=== PATIENT | female | born 1935 | race Caucasian/White ===

== ENCOUNTER 2016-07-30 11:03 | Outpatient (CLI) | payer MEDICARE, OTHER ==
[2016-07-30 13:20] LABS: Anion Gap 15 mmol/L (10-20); BUN (Urea Nitrogen) 29 mg/dL (9.8-20.1); Calc. Creatinine Clearance 0 mL/min (70-130); Calcium 9.3 mg/dL (7.8-10.44); Carbon Dioxide 35 mmol/L (23-31); Chloride 96 mmol/L (98-107); Estimated GFR-MDRD 31
[2016-07-30 13:47] LABS: Prothrombin Time 27.4 SEC (12.0-14.7)
== END 2016-07-30 11:04 ==
LOC: NAVSJIPCSP 11:03
PROVIDERS: ATTEND Internal Medicine
DX: I50.9 Heart failure, unspecified (principal); I48.91 Unspecified atrial fibrillation; C50.919 Malignant neoplasm of unspecified site of unspecified female breast
CPT/HCPCS: 36415; 80048; 83880; 85610

== ENCOUNTER 2016-09-11 10:05 | Outpatient (CLI) | payer MEDICARE, OTHER ==
[2016-09-11 12:42] LABS: Anion Gap 16 mmol/L (10-20); BUN (Urea Nitrogen) 40 mg/dL (9.8-20.1); Calc. Creatinine Clearance 0 mL/min (70-130); Calcium 9.4 mg/dL (7.8-10.44); Carbon Dioxide 34 mmol/L (23-31); Chloride 93 mmol/L (98-107); Estimated GFR-MDRD 27
[2016-09-11 14:27] LABS: Prothrombin Time 24.3 SEC (12.0-14.7)
== END 2016-09-11 10:06 | disposition home or self-care (01) ==
LOC: NAVSJIPCSP 10:05
PROVIDERS: ATTEND Internal Medicine
DX: I48.2 Chronic atrial fibrillation (principal); I10 Essential (primary) hypertension; I50.9 Heart failure, unspecified
CPT/HCPCS: 36415; 80048; 85610

== ENCOUNTER 2016-10-16 14:33 | Outpatient (CLI) | payer MEDICARE, OTHER ==
[2016-10-16 14:49] LABS: INR-International Normal Ratio 1.5; Prothrombin Time 18.3 SEC (12.0-14.7)
[2016-10-16 14:57] LABS: Anion Gap 19 mmol/L (10-20); BUN (Urea Nitrogen) 51 mg/dL (9.8-20.1); Calc. Creatinine Clearance 0 mL/min (70-130); Calcium 9.4 mg/dL (7.8-10.44); Carbon Dioxide 32 mmol/L (23-31); Chloride 93 mmol/L (98-107); Estimated GFR-MDRD 22; Glucose 68 mg/dL (83-110); Sodium 140 mmol/L (136-145)
== END 2016-10-16 14:34 | disposition home or self-care (01) ==
LOC: NAVSJIPCSP 14:33
PROVIDERS: ATTEND Internal Medicine
DX: I48.91 Unspecified atrial fibrillation (principal); I10 Essential (primary) hypertension; N30.90 Cystitis, unspecified without hematuria; Z79.899 Other long term (current) drug therapy
CPT/HCPCS: 36415; 80048; 85610

== ENCOUNTER 2016-11-28 10:59 | Outpatient (CLI) | payer MEDICARE, OTHER ==
[2016-11-28 11:27] LABS: Bilirubin Negative (Negative); Blood, Urine Trace (Negative); Clarity Clear (Clear); Glucose, Urine (Dipstick) Negative (Negative); Leukocyte Moderate (Negative); Nitrite Negative (Negative); Protein, Urine (Dipstick) Trace mg/dL (Neg-Trace); Specific Gravity, Urine 1.015 (1.005-1.030); Urobilinogen 0.2 mg/dL (0.2-1.0); pH, Urine 7.5 (5.0-9.0)
[2016-11-28 11:35] LABS: Other Microscopic Description QNS FOR MICROSCOPIC
== END 2016-11-28 11:00 | disposition home or self-care (01) ==
LOC: NAVSJIPCSP 10:59
PROVIDERS: ATTEND Family Medicine
DX: N30.90 Cystitis, unspecified without hematuria (principal)
CPT/HCPCS: 81003; 81015; 87086

== ENCOUNTER 2016-12-03 12:41 | Outpatient (CLI) | payer MEDICARE, OTHER ==
[2016-12-03 13:15] LABS: #Basophils 0.1 thou/uL (0.0-0.2); #Eosinphils 0.4 thou/uL (0.0-0.7); #Lymphocytes 1.1 thou/uL (1.20-3.40); #Monocytes 1.1 thou/uL (0.11-0.59); #Neutrophils 5.6 thou/uL (1.40-6.50); %Basophils 1.4 % (0.0-1.0); %Eosinophils 5.2 % (0.0-10.0); %Lymphocytes 12.8 % (21.0-51.0); %Monocytes 13.1 % (0.0-10.0); %Neutrophils 67.6 % (42.0-75.0); Mean Corpuscular HGB CONC 34.3 g/dL (32.0-36.0); Mean Corpuscular Hemoglobin 32.6 pg (27.0-31.0); Mean Corpuscular Volume 94.9 fl (81.0-99.0); Mean Platelet Volume 9.4 fL (7.4-10.4); Platelet Count 203 thou/uL (130-400); RBC Distribution Width 11.7 % (11.5-14.5); Red Blood Cell (RBC) Count 4.31 mill/uL (4.20-5.40); White Blood Cell (WBC) Count 8.2 thou/uL (4.8-10.8)
[2016-12-03 13:23] LABS: INR-International Normal Ratio 2.5; Prothrombin Time 28.4 SEC (12.0-14.7)
[2016-12-03 13:36] LABS: Chloride 88 mmol/L (98-107); Sodium 138 mmol/L (136-145)
[2016-12-03 13:48] LABS: BUN (Urea Nitrogen) 72 mg/dL (9.8-20.1); Calc. Creatinine Clearance 0 mL/min (70-130); Calcium 9.4 mg/dL (7.8-10.44); Carbon Dioxide 31 mmol/L (23-31); Estimated GFR-MDRD 19; Glucose 85 mg/dL (83-110)
--- NOTE | 2016-12-03 13:52 | RAD ---
THREE VIEWS OF THE RIGHT HAND: Indication: Osteoarthritis. Comparison: None. FINDINGS: There is advanced STT and first MC osteoarthrosis. There is scattered IP osteoarthritis. No acute fr acture or subluxation is evident. There is diffuse osteopenia. There is some chondrocalcinosis seen within the TFC and hyaline cartilage of the radiocarpal joint. IMPRESSION: 1. Scattered osteoarthrosis of the right hand. 2. Chondrocalcinosis. POS: [facility]
--- NOTE | 2016-12-03 13:56 | RAD ---
RIGHT FOOT THREE VIEWS: History: Arthritis. Right foot pain. FINDINGS: Lisfranc joint alignment is anatomic. Pes planus is apparent on the lateral view. Prominent osteophy tosis and joint space narrowing was present throughout the hindfoot, most severe at the talonavicula r joint. Osseous structures are demineralized. Soft tissue swelling overlies the hindfoot. IMPRESSION: 1. Severe osteoarthritic changes of the hindfoot. Soft tissue swelling. 2. Osteoporosis. 3. Severe pes planus. POS: [facility]
[2016-12-03 14:05] LABS: Anion Gap 22 mmol/L (10-20)
== END 2016-12-03 12:42 | disposition home or self-care (01) ==
LOC: NAV LAB 12:41
PROVIDERS: ATTEND Internal Medicine
DX: I48.91 Unspecified atrial fibrillation (principal); M17.0 Bilateral primary osteoarthritis of knee; I10 Essential (primary) hypertension; N30.90 Cystitis, unspecified without hematuria; Z79.01 Long term (current) use of anticoagulants; Z79.899 Other long term (current) drug therapy
CPT/HCPCS: 36415; 80048; 85025; 85610

== ENCOUNTER 2016-12-12 16:12 | Emergency (ER) | payer MEDICARE, OTHER | END 2016-12-12 17:17 | disposition home or self-care (01) | LOC: NAV ERS 16:12 | DX: M47.892 Other spondylosis, cervical region (principal); E78.5 Hyperlipidemia, unspecified; I11.0 Hypertensive heart disease with heart failure; I50.9 Heart failure, unspecified; E21.3 Hyperparathyroidism, unspecified; Z79.01 Long term (current) use of anticoagulants; Z79.899 Other long term (current) drug therapy | CPT/HCPCS: 99283 ==

== ENCOUNTER 2016-12-25 11:38 | Outpatient (CLI) | payer MEDICARE, OTHER ==
[2016-12-25 12:34] LABS: #Basophils 0.1 thou/uL (0.0-0.2); #Eosinphils 0.1 thou/uL (0.0-0.7); #Lymphocytes 1.2 thou/uL (1.20-3.40); #Monocytes 1.2 thou/uL (0.11-0.59); #Neutrophils 10.7 thou/uL (1.40-6.50); %Basophils 0.7 % (0.0-1.0); %Eosinophils 0.9 % (0.0-10.0); %Lymphocytes 8.9 % (21.0-51.0); %Monocytes 8.7 % (0.0-10.0); %Neutrophils 80.7 % (42.0-75.0); Hemoglobin 12.8 g/dL (12.0-16.0); Mean Corpuscular HGB CONC 33.3 g/dL (32.0-36.0); Mean Corpuscular Hemoglobin 32.4 pg (27.0-31.0); Mean Corpuscular Volume 97.1 fl (81.0-99.0); Mean Platelet Volume 7.9 fL (7.4-10.4); Platelet Count 196 thou/uL (130-400); RBC Distribution Width 12.1 % (11.5-14.5); Red Blood Cell (RBC) Count 3.97 mill/uL (4.20-5.40); White Blood Cell (WBC) Count 13.2 thou/uL (4.8-10.8)
[2016-12-25 12:39] LABS: INR-International Normal Ratio 1.2; Prothrombin Time 15.3 SEC (12.0-14.7)
[2016-12-25 12:50] LABS: Anion Gap 16 mmol/L (10-20); BUN (Urea Nitrogen) 33 mg/dL (9.8-20.1); Calc. Creatinine Clearance 0 mL/min (70-130); Calcium 7.9 mg/dL (7.8-10.44); Carbon Dioxide 25 mmol/L (23-31); Chloride 103 mmol/L (98-107); Estimated GFR-MDRD 46; Glucose 81 mg/dL (83-110); Potassium 3.6 mmol/L (3.5-5.1); Sodium 140 mmol/L (136-145)
== END 2016-12-25 11:39 | disposition home or self-care (01) ==
LOC: NAVSJIPCSP 11:38
PROVIDERS: ATTEND Internal Medicine
DX: Z51.81 Encounter for therapeutic drug level monitoring (principal); Z79.899 Other long term (current) drug therapy
CPT/HCPCS: 36415; 80048; 85025; 85610

== ENCOUNTER 2017-01-07 09:52 | Outpatient (CLI) | payer MEDICARE, OTHER ==
[2017-01-07 12:58] LABS: Anion Gap 17 mmol/L (10-20); BUN (Urea Nitrogen) 20 mg/dL (9.8-20.1); Calc. Creatinine Clearance 0 mL/min (70-130); Calcium 8.2 mg/dL (7.8-10.44); Carbon Dioxide 27 mmol/L (23-31); Chloride 101 mmol/L (98-107); Estimated GFR-MDRD 38; Glucose 89 mg/dL (83-110); Potassium 3.5 mmol/L (3.5-5.1); Sodium 141 mmol/L (136-145)
[2017-01-07 13:35] LABS: INR-International Normal Ratio 1.8; Prothrombin Time 21.3 SEC (12.0-14.7)
== END 2017-01-07 09:53 | disposition home or self-care (01) ==
LOC: NAVSJIPCSP 09:52
PROVIDERS: ATTEND Internal Medicine
DX: I48.91 Unspecified atrial fibrillation (principal); I10 Essential (primary) hypertension; N30.90 Cystitis, unspecified without hematuria
CPT/HCPCS: 36415; 80048; 85610

== ENCOUNTER 2017-01-15 15:16 | Inpatient (IN) | payer MEDICARE, OTHER ==
[2017-01-15 15:50] VITALS: BMI 29.1
[2017-01-15] MEDS ORDERED: HYDROCODONE PO PRN ×2 (17:33)
[2017-01-15] MEDS ORDERED: PROVENTIL INHALER 6.7 G (200 INHALATIONS) INH PRN (17:33)
[2017-01-15] MEDS ORDERED: Diphenoxylate HCl/Atropine Tablet PO PRN ×2 (17:33→18:27)
[2017-01-15] MEDS ORDERED: IBUPROFEN PO PRN ×2 (17:33)
[2017-01-15] MEDS ORDERED: Warfarin Sodium 5 MG TAB PO SCH (18:30)
[2017-01-15] MEDS: metroNIDAZOLE 500 MG TAB PO SCH (21:11)
[2017-01-15] MEDS: Famotidine 20 MG TAB PO SCH (21:11)
[2017-01-16] MEDS: Levothyroxine Sodium 100 MCG TAB PO SCH (05:35)
[2017-01-16 05:56] LABS: INR-International Normal Ratio 2.5; Prothrombin Time 28.2 SEC (12.0-14.7)
[2017-01-16 06:08] LABS: ALT (SGPT) 11 U/L (8-55); AST (SGOT) 24 U/L (5-34); Albumin 2.4 g/dL (3.4-4.8); Alkaline Phosphatase 56 U/L (40-150); Anion Gap 12 mmol/L (10-20); BUN (Urea Nitrogen) 35 mg/dL (9.8-20.1); Bilirubin, Total 0.4 mg/dL (0.2-1.2); Calc. Creatinine Clearance 45 mL/min (70-130); Calcium 8.1 mg/dL (7.8-10.44); Carbon Dioxide 36 mmol/L (23-31); Chloride 95 mmol/L (98-107); Estimated GFR-MDRD 36; Globulin 2.8 g/dL (2.4-3.5); Glucose 74 mg/dL (83-110); Potassium 3.1 mmol/L (3.5-5.1); Protein, Total 5.2 g/dL (6.0-8.3); Sodium 140 mmol/L (136-145)
[2017-01-16 06:44] LABS: Hemoglobin 10.4 g/dL (12.0-16.0); Mean Corpuscular HGB CONC 32.8 g/dL (32.0-36.0); Mean Corpuscular Hemoglobin 31.2 pg (27.0-31.0); Mean Platelet Volume 7.4 fL (7.4-10.4); Platelet Count 308 thou/uL (130-400); RBC Distribution Width 12.7 % (11.5-14.5); Red Blood Cell (RBC) Count 3.34 mill/uL (4.20-5.40); White Blood Cell (WBC) Count 7.9 thou/uL (4.8-10.8)
[2017-01-16 06:45] LABS: Anisocytosis SLIGHT = 6-15 cells (100X) (0-5/hpf); Band 2 % (5-11); Hypochromia SLIGHT = 6-15 cells (100X) (0-5/hpf); Lymphocytes 23 % (21-51); MDiff Complete? YES; Monocytes 12 % (0-10); Neutrophil 63 % (42-75); PLT Morphology Comment Appears Adequate
[2017-01-16] MEDS: predniSONE 10 MG TAB PO SCH (08:35)
[2017-01-16] MEDS: Folic Acid 1 MG TAB PO SCH (09:58)
[2017-01-16] MEDS: Loratadine 10 MG TAB PO SCH (09:58)
[2017-01-16] MEDS: metroNIDAZOLE 500 MG TAB PO SCH ×3 (09:58→21:19)
[2017-01-16] MEDS: Allopurinol 100 MG TAB PO SCH (09:59)
[2017-01-16] MEDS: Furosemide 40 MG TAB PO SCH (09:59)
[2017-01-16] MEDS: Potassium Bicarbonate/Cit Ac 25 MEQ TAB PO SCH (09:59)
[2017-01-16] MEDS: Famotidine 20 MG TAB PO SCH ×2 (09:59→21:19)
[2017-01-16] MEDS: Warfarin Sodium 5 MG TAB PO SCH (17:55)
[2017-01-17 05:40] LABS: INR-International Normal Ratio 2.9; Prothrombin Time 31.4 SEC (12.0-14.7)
[2017-01-17] MEDS: Levothyroxine Sodium 100 MCG TAB PO SCH (06:00)
[2017-01-17] MEDS: Loratadine 10 MG TAB PO SCH (08:40)
[2017-01-17] MEDS: predniSONE 10 MG TAB PO SCH (08:40)
[2017-01-17] MEDS: metroNIDAZOLE 500 MG TAB PO SCH (08:40)
[2017-01-17] MEDS: Famotidine 20 MG TAB PO SCH ×2 (08:40→20:02)
[2017-01-17] MEDS: Furosemide 40 MG TAB PO SCH (08:40)
[2017-01-17] MEDS: Folic Acid 1 MG TAB PO SCH (08:41)
[2017-01-17] MEDS: Allopurinol 100 MG TAB PO SCH (08:41)
[2017-01-17] MEDS: Potassium Bicarbonate/Cit Ac 25 MEQ TAB PO SCH ×2 (08:41→16:49)
[2017-01-17] MEDS ORDERED: Potassium Chloride 20 MEQ TAB PO SCH (17:00)
[2017-01-18 05:47] LABS: INR-International Normal Ratio 2.8; Prothrombin Time 30.5 SEC (12.0-14.7)
[2017-01-18] MEDS: Levothyroxine Sodium 100 MCG TAB PO SCH (05:50)
[2017-01-18 05:53] LABS: Anion Gap 14 mmol/L (10-20); BUN (Urea Nitrogen) 27 mg/dL (9.8-20.1); Calc. Creatinine Clearance 44 mL/min (70-130); Calcium 8.5 mg/dL (7.8-10.44); Carbon Dioxide 33 mmol/L (23-31); Chloride 97 mmol/L (98-107); Estimated GFR-MDRD 36; Glucose 76 mg/dL (83-110); Potassium 3.4 mmol/L (3.5-5.1); Sodium 141 mmol/L (136-145)
[2017-01-18 05:59] LABS: Hemoglobin 11.9 g/dL (12.0-16.0); Platelet Count 313 thou/uL (130-400)
[2017-01-18] MEDS: Loratadine 10 MG TAB PO SCH (10:10)
[2017-01-18] MEDS: Famotidine 20 MG TAB PO SCH ×2 (10:10→21:51)
[2017-01-18] MEDS: Folic Acid 1 MG TAB PO SCH (10:10)
[2017-01-18] MEDS: predniSONE 10 MG TAB PO SCH (10:11)
[2017-01-18] MEDS: Allopurinol 100 MG TAB PO SCH (10:11)
[2017-01-18] MEDS: Potassium Bicarbonate/Cit Ac 25 MEQ TAB PO SCH ×2 (10:11→16:35)
[2017-01-18] MEDS ORDERED: Polyethylene Glycol 3350 17 GM Packet PO SCH (21:00)
[2017-01-19 05:47] LABS: INR-International Normal Ratio 2.9; Prothrombin Time 31.5 SEC (12.0-14.7)
[2017-01-19] MEDS: Levothyroxine Sodium 100 MCG TAB PO SCH (05:56)
[2017-01-19] MEDS: Folic Acid 1 MG TAB PO SCH (09:16)
[2017-01-19] MEDS: Loratadine 10 MG TAB PO SCH (09:16)
[2017-01-19] MEDS: Famotidine 20 MG TAB PO SCH ×2 (09:16→20:50)
[2017-01-19] MEDS: Potassium Bicarbonate/Cit Ac 25 MEQ TAB PO SCH ×2 (09:16→17:01)
[2017-01-19] MEDS: predniSONE 10 MG TAB PO SCH (09:16)
[2017-01-19] MEDS: Allopurinol 100 MG TAB PO SCH (09:16)
[2017-01-19] MEDS: Warfarin Sodium 5 MG TAB PO SCH (17:02)
[2017-01-20 05:30] LABS: Hemoglobin 10.9 g/dL (12.0-16.0); Platelet Count 255 thou/uL (130-400)
[2017-01-20 05:34] LABS: INR-International Normal Ratio 2.6; Prothrombin Time 28.7 SEC (12.0-14.7)
[2017-01-20] MEDS: Levothyroxine Sodium 100 MCG TAB PO SCH (06:24)
[2017-01-20] MEDS: Potassium Bicarbonate/Cit Ac 25 MEQ TAB PO SCH ×2 (08:25→16:56)
[2017-01-20] MEDS: predniSONE 10 MG TAB PO SCH (08:26)
[2017-01-20] MEDS: Allopurinol 100 MG TAB PO SCH (08:26)
[2017-01-20] MEDS: Loratadine 10 MG TAB PO SCH (08:26)
[2017-01-20] MEDS: Famotidine 20 MG TAB PO SCH ×2 (08:26→21:11)
[2017-01-20] MEDS: Folic Acid 1 MG TAB PO SCH (08:26)
[2017-01-20] MEDS: Warfarin Sodium 5 MG TAB PO SCH (16:55)
[2017-01-21] MEDS: Levothyroxine Sodium 100 MCG TAB PO SCH (05:27)
[2017-01-21 05:40] LABS: INR-International Normal Ratio 2.7; Prothrombin Time 30.2 SEC (12.0-14.7)
[2017-01-21 08:33] LABS: Anion Gap 14 mmol/L (10-20); BUN (Urea Nitrogen) 18 mg/dL (9.8-20.1); Calc. Creatinine Clearance 51 mL/min (70-130); Calcium 8.5 mg/dL (7.8-10.44); Carbon Dioxide 27 mmol/L (23-31); Chloride 103 mmol/L (98-107); Estimated GFR-MDRD 41; Glucose 71 mg/dL (83-110); Potassium 4.1 mmol/L (3.5-5.1); Sodium 140 mmol/L (136-145)
[2017-01-21] MEDS: predniSONE 10 MG TAB PO SCH (08:55)
[2017-01-21] MEDS: Loratadine 10 MG TAB PO SCH (08:55)
[2017-01-21] MEDS: Allopurinol 100 MG TAB PO SCH (08:55)
[2017-01-21] MEDS: Potassium Bicarbonate/Cit Ac 25 MEQ TAB PO SCH (08:55)
[2017-01-21] MEDS: Folic Acid 1 MG TAB PO SCH (08:55)
[2017-01-21] MEDS: Famotidine 20 MG TAB PO SCH (08:55)
[2017-01-21 09:51] VITALS: BP 158/72; TEMP 97.8
== END 2017-01-21 15:05 | disposition home health service (06) | DRG 947 ==
LOC: NAV ACUTE 15:16
PROVIDERS: ADMIT Internal Medicine; ATTEND Internal Medicine
DX: R53.1 Weakness (principal); A41.89 Other specified sepsis; I50.32 Chronic diastolic (congestive) heart failure; N39.0 Urinary tract infection, site not specified; Z85.3 Personal history of malignant neoplasm of breast; Z79.01 Long term (current) use of anticoagulants; I48.2 Chronic atrial fibrillation; E87.6 Hypokalemia; I35.0 Nonrheumatic aortic (valve) stenosis; E03.9 Hypothyroidism, unspecified; N18.3 Chronic kidney disease, stage 3 (moderate); I27.2 Other secondary pulmonary hypertension
CPT/HCPCS: 80048; 80053; 85007; 85014; 85018; 85027; 85049; 85610; J7512

== ENCOUNTER 2017-01-22 23:23 | Emergency (ER) | payer MEDICARE, OTHER ==
[2017-01-22] MEDS ORDERED: Clindamycin 300 MG/2 ML VIAL ONE (23:57)
[2017-01-22] MEDS ORDERED: Ibuprofen 800 MG TAB ONE (23:57)
[2017-01-22] MEDS ORDERED: Sodium Chloride 0.9% 500 ML ONE (23:58)
[2017-01-23 00:13] LABS: #Basophils 0.2 thou/uL (0.0-0.2); #Eosinphils 0.5 thou/uL (0.0-0.7); #Lymphocytes 1.2 thou/uL (1.20-3.40); #Monocytes 0.9 thou/uL (0.11-0.59); #Neutrophils 12.5 thou/uL (1.40-6.50); %Basophils 1.1 % (0.0-1.0); %Eosinophils 3.1 % (0.0-10.0); %Lymphocytes 7.8 % (21.0-51.0); %Monocytes 6.1 % (0.0-10.0); %Neutrophils 81.9 % (42.0-75.0); Hemoglobin 13.4 g/dL (12.0-16.0); Mean Corpuscular HGB CONC 33.4 g/dL (32.0-36.0); Mean Corpuscular Hemoglobin 32.2 pg (27.0-31.0); Mean Corpuscular Volume 96.3 fl (81.0-99.0); Mean Platelet Volume 7.3 fL (7.4-10.4); Platelet Count 208 thou/uL (130-400); Red Blood Cell (RBC) Count 4.17 mill/uL (4.20-5.40); White Blood Cell (WBC) Count 15.3 thou/uL (4.8-10.8)
[2017-01-23] MEDS ORDERED: Ibuprofen 800 MG TAB ONE (00:17)
[2017-01-23] MEDS ORDERED: Ibuprofen 100 MG/5 ML UDCUP ONE (00:21)
[2017-01-23] MEDS ORDERED: Ibuprofen 200 MG TAB ONE (00:22)
[2017-01-23 00:24] LABS: INR-International Normal Ratio 2.9; PTT 48.3 SEC (22.9-36.1); Prothrombin Time 31.6 SEC (12.0-14.7)
[2017-01-23 00:32] LABS: ALT (SGPT) 12 U/L (8-55); AST (SGOT) 22 U/L (5-34); Albumin 3.3 g/dL (3.4-4.8); Alkaline Phosphatase 73 U/L (40-150); Anion Gap 16 mmol/L (10-20); BUN (Urea Nitrogen) 19 mg/dL (9.8-20.1); CK (CPK) 17 U/L (29-168); Calc. Creatinine Clearance 0 mL/min (70-130); Carbon Dioxide 26 mmol/L (23-31); Chloride 102 mmol/L (98-107); Estimated GFR-MDRD 38; Globulin 3.4 g/dL (2.4-3.5); Glucose 104 mg/dL (83-110); Potassium 4.8 mmol/L (3.5-5.1); Protein, Total 6.7 g/dL (6.0-8.3); Sodium 139 mmol/L (136-145)
[2017-01-23 00:33] LABS: CKMB 0.8 ng/mL (0-6.6); Troponin I 0.032 ng/mL (< 0.028)
[2017-01-23] MEDS ORDERED: Clindamycin/D5W 600 MG in Premix Bag 1 BAG IVPB SCH (01:00)
--- NOTE | 2017-01-23 08:07 | RAD ---
SINGLE VIEW OF THE CHEST: Comparison: 01-10-17 History: Weakness. FINDINGS: Single view of the chest shows a cardiomediastinal silhouette that is upper limits of normal in size . A calcified granuloma is seen in the right lung. There is no evidence of consolidation or pleural effusion. IMPRESSION: No evidence of acute cardiopulmonary disease. POS: [facility]
== END 2017-01-23 02:41 | disposition short-term general hospital (02) ==
LOC: NAV ERS 23:23
DX: L03.114 Cellulitis of left upper limb (principal); I48.91 Unspecified atrial fibrillation; E78.5 Hyperlipidemia, unspecified; I11.0 Hypertensive heart disease with heart failure; I50.9 Heart failure, unspecified; I27.2 Other secondary pulmonary hypertension; Z79.899 Other long term (current) drug therapy; Z79.01 Long term (current) use of anticoagulants
CPT/HCPCS: 36415; 71010; 80053; 82550; 82553; 83605; 83880; 84484; 85025; 85610; 85730; 87040; 93005; 96361; 96365; 96375; J3490; J7050

== ENCOUNTER 2017-01-27 13:08 | Outpatient (CLI) | payer MEDICARE, OTHER ==
[2017-01-27 13:46] LABS: Anion Gap 15 mmol/L (10-20); BUN (Urea Nitrogen) 19 mg/dL (9.8-20.1); Calc. Creatinine Clearance 0 mL/min (70-130); Calcium 8.4 mg/dL (7.8-10.44); Carbon Dioxide 23 mmol/L (23-31); Chloride 106 mmol/L (98-107); Estimated GFR-MDRD 53; Glucose 80 mg/dL (83-110); Potassium 4.2 mmol/L (3.5-5.1); Sodium 140 mmol/L (136-145)
[2017-01-27 14:07] LABS: #Basophils 0.1 thou/uL (0.0-0.2); #Eosinphils 0.2 thou/uL (0.0-0.7); #Lymphocytes 0.5 thou/uL (1.20-3.40); #Monocytes 0.6 thou/uL (0.11-0.59); #Neutrophils 11.1 thou/uL (1.40-6.50); %Basophils 0.7 % (0.0-1.0); %Eosinophils 1.4 % (0.0-10.0); %Monocytes 4.9 % (0.0-10.0); %Neutrophils 89.1 % (42.0-75.0); Hemoglobin 11.9 g/dL (12.0-16.0); Mean Corpuscular HGB CONC 32.8 g/dL (32.0-36.0); Mean Corpuscular Hemoglobin 32.1 pg (27.0-31.0); Mean Corpuscular Volume 97.9 fl (81.0-99.0); Mean Platelet Volume 7.3 fL (7.4-10.4); Platelet Count 220 thou/uL (130-400); RBC Distribution Width 14.8 % (11.5-14.5); Red Blood Cell (RBC) Count 3.71 mill/uL (4.20-5.40); White Blood Cell (WBC) Count 12.4 thou/uL (4.8-10.8)
[2017-01-27 17:24] LABS: INR-International Normal Ratio 1.4; Prothrombin Time 17.7 SEC (12.0-14.7)
== END 2017-01-27 13:09 | disposition home or self-care (01) ==
LOC: NAVSJIPCSP 13:08
PROVIDERS: ATTEND Internal Medicine
DX: C50.919 Malignant neoplasm of unspecified site of unspecified female breast (principal); N30.90 Cystitis, unspecified without hematuria; I48.91 Unspecified atrial fibrillation; I10 Essential (primary) hypertension
CPT/HCPCS: 36415; 80048; 85025; 85610

== ENCOUNTER 2017-02-02 10:37 | Outpatient (CLI) | payer MEDICARE, OTHER ==
[2017-02-02 14:15] LABS: #Basophils 0.1 thou/uL (0.0-0.2); #Eosinphils 0.9 thou/uL (0.0-0.7); #Lymphocytes 0.9 thou/uL (1.20-3.40); #Monocytes 0.5 thou/uL (0.11-0.59); #Neutrophils 5.3 thou/uL (1.40-6.50); %Basophils 0.9 % (0.0-1.0); %Eosinophils 11.6 % (0.0-10.0); %Lymphocytes 11.7 % (21.0-51.0); %Monocytes 5.9 % (0.0-10.0); %Neutrophils 69.9 % (42.0-75.0); Hemoglobin 11.6 g/dL (12.0-16.0); Mean Corpuscular HGB CONC 31.8 g/dL (32.0-36.0); Mean Corpuscular Hemoglobin 31.7 pg (27.0-31.0); Mean Corpuscular Volume 99.9 fl (81.0-99.0); Mean Platelet Volume 7.2 fL (7.4-10.4); Platelet Count 159 thou/uL (130-400); RBC Distribution Width 15.2 % (11.5-14.5); Red Blood Cell (RBC) Count 3.64 mill/uL (4.20-5.40); White Blood Cell (WBC) Count 7.6 thou/uL (4.8-10.8)
[2017-02-02 14:44] LABS: Anion Gap 14 mmol/L (10-20); BUN (Urea Nitrogen) 20 mg/dL (9.8-20.1); CRP (Inflammatory) 3.72 mg/dL (= or < 0.5); Calc. Creatinine Clearance 0 mL/min (70-130); Calcium 8.5 mg/dL (7.8-10.44); Carbon Dioxide 27 mmol/L (23-31); Chloride 103 mmol/L (98-107); Estimated GFR-MDRD 58; Glucose 91 mg/dL (83-110); Potassium 3.8 mmol/L (3.5-5.1); Sodium 140 mmol/L (136-145)
== END 2017-02-02 10:38 ==
LOC: NAVSJIPCSP 10:37
PROVIDERS: ATTEND Internal Medicine
DX: L03.119 Cellulitis of unspecified part of limb (principal); M10.9 Gout, unspecified
CPT/HCPCS: 36415; 80048; 85025; 85652; 86140

== ENCOUNTER 2017-02-02 11:59 | Outpatient (CLI) | payer MEDICARE, OTHER ==
--- NOTE | 2017-02-02 15:13 | ULT ---
LEFT UPPER EXTREMITY VENOUS DOPPLER EVALUATION WITH SPECTRAL ANALYSIS AND COLOR FLOW EVALUATION: Date: 02-02-17 History: Left upper extremity swelling x one day. Left breast neoplasm. FINDINGS: Grayscale, color flow, doppler evaluation, and spectral analysis of the left upper extremity venous structures is performed with 2D imaging. There is normal flow seen within the left internal jugular and subclavian veins with normal lumen compressibility and flow seen within the left axillary, brach ial, basilic and cephalic veins. Flow is demonstrated within the left upper extremity radial and uln ar veins. IMPRESSION: 1. No evidence of DVT involving the visualized deep venous structures, left upper extremity. POS: [facility]
== END 2017-02-02 12:00 | disposition home or self-care (01) ==
LOC: NAV ULT 11:59
PROVIDERS: ATTEND Internal Medicine
DX: C50.919 Malignant neoplasm of unspecified site of unspecified female breast (principal); I48.91 Unspecified atrial fibrillation; N30.90 Cystitis, unspecified without hematuria; I10 Essential (primary) hypertension
CPT/HCPCS: 36415; 80048; 85025; 85652; 86140

== ENCOUNTER 2017-02-10 14:10 | Outpatient (CLI) | payer MEDICARE, OTHER ==
[2017-02-10 19:59] LABS: INR-International Normal Ratio 1.2; Prothrombin Time 15.2 SEC (12.0-14.7)
[2017-02-10 20:58] LABS: Anion Gap 17 mmol/L (10-20); BUN (Urea Nitrogen) 18 mg/dL (9.8-20.1); Calc. Creatinine Clearance 0 mL/min (70-130); Calcium 8.7 mg/dL (7.8-10.44); Carbon Dioxide 25 mmol/L (23-31); Chloride 104 mmol/L (98-107); Estimated GFR-MDRD 54; Glucose 61 mg/dL (83-110); Potassium 4.1 mmol/L (3.5-5.1); Sodium 142 mmol/L (136-145)
== END 2017-02-10 14:11 | disposition home or self-care (01) ==
LOC: NAVSJIPCSP 14:10
PROVIDERS: ATTEND Internal Medicine
DX: I48.91 Unspecified atrial fibrillation (principal); I10 Essential (primary) hypertension; N30.90 Cystitis, unspecified without hematuria
CPT/HCPCS: 80048; 81003; 83880; 85610

== ENCOUNTER 2017-02-17 13:36 | Outpatient (CLI) | payer MEDICARE, OTHER ==
[2017-02-17 17:31] LABS: INR-International Normal Ratio 2.9; Prothrombin Time 31.5 SEC (12.0-14.7)
[2017-02-17 17:34] LABS: Hemoglobin 12.6 g/dL (12.0-16.0)
[2017-02-17 17:36] LABS: Anion Gap 15 mmol/L (10-20); BUN (Urea Nitrogen) 19 mg/dL (9.8-20.1); Calc. Creatinine Clearance 0 mL/min (70-130); Calcium 8.7 mg/dL (7.8-10.44); Carbon Dioxide 28 mmol/L (23-31); Chloride 103 mmol/L (98-107); Estimated GFR-MDRD 48; Potassium 3.7 mmol/L (3.5-5.1); Sodium 142 mmol/L (136-145)
[2017-02-17 18:13] LABS: Glucose 57 mg/dL (83-110)
[2017-02-17 19:20] LABS: Bilirubin Negative (Negative); Blood, Urine Negative (Negative); Clarity Clear (Clear); Glucose, Urine (Dipstick) Negative (Negative); Leukocyte Trace (Negative); Nitrite Negative (Negative); Protein, Urine (Dipstick) Negative (Neg-Trace); Specific Gravity, Urine 1.015 (1.005-1.030); Urobilinogen 0.2 mg/dL (0.2-1.0)
[2017-02-17 20:15] LABS: RBC/HPF 0-3 HPF (0-3)
[2017-02-17 20:16] LABS: Bacteria/HPF Rare-Few HPF (None Seen)
[2017-02-18 17:54] LABS: Creatinine, Urine 118.22 mg/dL (47-110)
== END 2017-02-17 13:37 | disposition home or self-care (01) ==
LOC: NAVSJIPCSP 13:36
PROVIDERS: ATTEND Internal Medicine
DX: I12.9 Hypertensive chronic kidney disease with stage 1 through stage 4 chronic kidney disease, or unspecified chronic kidney disease (principal); N18.3 Chronic kidney disease, stage 3 (moderate); D63.1 Anemia in chronic kidney disease; I48.91 Unspecified atrial fibrillation; R80.9 Proteinuria, unspecified
CPT/HCPCS: 36415; 80048; 81003; 81015; 82570; 83880; 84156; 85014; 85018; 85610

== ENCOUNTER 2017-03-16 09:48 | Outpatient (CLI) | payer MEDICARE, OTHER ==
[2017-03-16 10:26] LABS: INR-International Normal Ratio 5.2
== END 2017-03-16 09:49 | disposition home or self-care (01) ==
LOC: NAV LAB 09:48
PROVIDERS: ATTEND Internal Medicine
DX: Z51.81 Encounter for therapeutic drug level monitoring (principal); I48.91 Unspecified atrial fibrillation; Z79.01 Long term (current) use of anticoagulants
CPT/HCPCS: 36415; 85610

== ENCOUNTER 2017-03-18 13:58 | Outpatient (CLI) | payer MEDICARE, OTHER ==
[2017-03-18 14:49] LABS: INR-International Normal Ratio 2.8; Prothrombin Time 30.3 SEC (12.0-14.7)
== END 2017-03-18 13:59 | disposition home or self-care (01) ==
LOC: NAVSJIPCSP 13:58
PROVIDERS: ATTEND Internal Medicine
DX: Z51.81 Encounter for therapeutic drug level monitoring (principal); I48.91 Unspecified atrial fibrillation; I10 Essential (primary) hypertension; N30.90 Cystitis, unspecified without hematuria
CPT/HCPCS: 85610

== ENCOUNTER 2017-03-24 18:03 | Outpatient (CLI) | payer MEDICARE, OTHER ==
[2017-03-24 18:26] LABS: INR-International Normal Ratio 1.1; Prothrombin Time 14.6 SEC (12.0-14.7)
== END 2017-03-24 18:04 | disposition home or self-care (01) ==
LOC: NAVSJIPCSP 18:03
PROVIDERS: ATTEND Internal Medicine
DX: Z51.81 Encounter for therapeutic drug level monitoring (principal); I48.91 Unspecified atrial fibrillation; N30.90 Cystitis, unspecified without hematuria; I10 Essential (primary) hypertension; Z79.01 Long term (current) use of anticoagulants
CPT/HCPCS: 85610

== ENCOUNTER 2017-03-30 15:33 | Outpatient (CLI) | payer MEDICARE, OTHER ==
[2017-03-30 16:32] LABS: INR-International Normal Ratio 1.3; Prothrombin Time 15.9 SEC (12.0-14.7)
== END 2017-03-30 15:34 | disposition home or self-care (01) ==
LOC: NAV LABSP 15:33
PROVIDERS: ATTEND Internal Medicine
DX: Z51.81 Encounter for therapeutic drug level monitoring (principal); I48.91 Unspecified atrial fibrillation; N30.90 Cystitis, unspecified without hematuria; I10 Essential (primary) hypertension; Z79.01 Long term (current) use of anticoagulants
CPT/HCPCS: 36415; 85610

== ENCOUNTER 2017-04-13 10:41 | Outpatient (CLI) | payer MEDICARE, OTHER ==
[2017-04-13 12:29] LABS: INR-International Normal Ratio 1.9; Prothrombin Time 22.3 SEC (12.0-14.7)
[2017-04-13 12:47] LABS: Anion Gap 17 mmol/L (10-20); BUN (Urea Nitrogen) 27 mg/dL (9.8-20.1); Calc. Creatinine Clearance 0 mL/min (70-130); Calcium 9.1 mg/dL (7.8-10.44); Carbon Dioxide 31 mmol/L (23-31); Chloride 100 mmol/L (98-107); Estimated GFR-MDRD 39; Potassium 4.2 mmol/L (3.5-5.1); Sodium 144 mmol/L (136-145)
[2017-04-13 13:27] LABS: Glucose 52 mg/dL (83-110)
== END 2017-04-13 10:42 | disposition home or self-care (01) ==
LOC: NAVSJIPCSP 10:41
PROVIDERS: ATTEND Internal Medicine
DX: N30.90 Cystitis, unspecified without hematuria (principal); I48.91 Unspecified atrial fibrillation; I10 Essential (primary) hypertension
CPT/HCPCS: 80048; 36415-59

== ENCOUNTER 2018-09-23 11:12 | Outpatient (CLI) | payer MEDICARE, OTHER ==
--- NOTE | 2018-09-23 11:59 | RAD ---
TWO VIEWS CHEST: History: Cough, congestive heart failure. Date: 09-23-18 Comparison: 08-13-15 FINDINGS: PA and lateral views of the chest demonstrate cardiomegaly. Pulmonary vascular congestion is seen. No evidence of effusions, pneumonia, or pneumothorax is seen. IMPRESSION: Cardiomegaly. POS: [facility]
== END 2018-09-23 11:13 | disposition home or self-care (01) ==
LOC: NAV RAD 11:12
PROVIDERS: ATTEND Internal Medicine
DX: I50.9 Heart failure, unspecified (principal); I48.91 Unspecified atrial fibrillation; R05 Cough; I51.7 Cardiomegaly
CPT/HCPCS: 71046

== ENCOUNTER 2018-10-12 10:08 | Outpatient (CLI) | payer MEDICARE, OTHER ==
--- NOTE | 2018-10-12 10:51 | RAD ---
TWO VIEWS CHEST: Date: 10-12-18 Provided Clinical History: Cough and congestion. FINDINGS: Comparison is made with a study dated 09-23-18. Cardiac silhouette remains enlarged. Prominence of the pulmonary vasculature and pulmonary interstiti um are noted. Abnormal fullness to the hilar region bilaterally, most notable on the lateral view. Sc attered small nodules may be present. There is no pleural fluid or pneumothorax apparent. IMPRESSION: 1. Cardiomegaly and finding suggesting congestive failure. 2. Abnormal prominence of the hilar regions, particularly on the lateral view. This is overall nonspe cific, but changes of adenopathy cannot be excluded. Consider correlation with chest CT. Code T
== END 2018-10-12 10:09 | disposition home or self-care (01) ==
LOC: NAV RAD 10:08
PROVIDERS: ATTEND Internal Medicine
DX: I50.9 Heart failure, unspecified (principal); R05 Cough; I48.91 Unspecified atrial fibrillation; I51.7 Cardiomegaly
CPT/HCPCS: 71046

== ENCOUNTER 2019-03-03 11:50 | Outpatient (CLI) | payer MEDICARE, OTHER ==
[2019-03-03 12:37] LABS: INR-International Normal Ratio 1.8; Prothrombin Time 21.2 SEC (12.0-14.7)
== END 2019-03-03 11:51 | disposition home or self-care (01) ==
LOC: NAV LABSP 11:50
PROVIDERS: ATTEND Internal Medicine
DX: I48.91 Unspecified atrial fibrillation (principal)
CPT/HCPCS: 36415; 85610

== ENCOUNTER 2019-08-30 10:02 | Emergency (ER) | payer MEDICARE, OTHER ==
[2019-08-30 10:57] LABS: #Basophils 0.1 thou/uL (0.0-0.2); #Eosinphils 0.2 thou/uL (0.0-0.7); #Lymphocytes 1.2 thou/uL (1.20-3.40); #Monocytes 0.8 thou/uL (0.11-0.59); #Neutrophils 6.7 thou/uL (1.40-6.50); %Basophils 1.4 % (0.0-1.0); %Eosinophils 2.4 % (0.0-10.0); %Lymphocytes 12.8 % (21.0-51.0); %Monocytes 8.5 % (0.0-10.0); %Neutrophils 74.9 % (42.0-75.0); Hemoglobin 14.2 g/dL (12.0-16.0); Mean Corpuscular HGB CONC 32.9 g/dL (32.0-36.0); Mean Corpuscular Volume 97.3 fL (78.0-98.0); Mean Platelet Volume 8.8 fL (7.4-10.4); Platelet Count 172 thou/uL (130-400); RBC Distribution Width 12.4 % (11.5-14.5); Red Blood Cell (RBC) Count 4.44 mill/uL (4.20-5.40)
[2019-08-30 11:04] LABS: INR-International Normal Ratio 2.2; PTT 54.7 SEC (22.9-36.1); Prothrombin Time 24.7 SEC (12.0-14.7)
--- NOTE | 2019-08-30 11:11 | RAD ---
XR Elbow Lt 4 View STANDARD HISTORY: Left elbow swelling and redness FINDINGS: No fracture, dislocation or bony destruction is identified. Soft tissue swelling is seen posteriorly.
[2019-08-30 11:13] LABS: ALT (SGPT) 9 U/L (8-55); AST (SGOT) 20 U/L (5-34); Albumin 3.6 g/dL (3.4-4.8); Alkaline Phosphatase 75 U/L (40-110); Anion Gap 16 mmol/L (10-20); BUN (Urea Nitrogen) 20 mg/dL (9.8-20.1); Bilirubin, Total 1.9 mg/dL (0.2-1.2); Calc. Creatinine Clearance 0 mL/min (70-130); Calcium 9.8 mg/dL (7.8-10.44); Carbon Dioxide 33 mmol/L (23-31); Chloride 95 mmol/L (98-107); Estimated GFR-MDRD 35; Globulin 3.7 g/dL (2.4-3.5); Glucose 87 mg/dL (83-110); Potassium 3.7 mmol/L (3.5-5.1); Protein, Total 7.3 g/dL (6.0-8.3); Sodium 140 mmol/L (136-145)
[2019-08-30] MEDS ORDERED: Sodium Chloride 0.9% 250 ML 250 ML ONE (11:53)
[2019-08-30] MEDS ORDERED: Cephalexin 250 MG CAP ONE (13:09)
[2019-08-30] MEDS ORDERED: Clindamycin 150 MG CAP ONE (13:10)
== END 2019-08-30 13:45 | disposition home or self-care (01) ==
LOC: NAV ERS 10:02
DX: L03.114 Cellulitis of left upper limb (principal); E78.5 Hyperlipidemia, unspecified; M19.90 Unspecified osteoarthritis, unspecified site; I11.0 Hypertensive heart disease with heart failure; I50.9 Heart failure, unspecified; E20.9 Hypoparathyroidism, unspecified; I48.91 Unspecified atrial fibrillation; I27.20 Pulmonary hypertension, unspecified; Z79.899 Other long term (current) drug therapy; Z79.52 Long term (current) use of systemic steroids
CPT/HCPCS: 80053; 83605; 85025; 85610; 85730; 87040; 96365; J3370; J7050

== ENCOUNTER 2019-08-31 13:49 | Inpatient (IN) | payer MEDICARE, OTHER ==
[2019-08-31 16:10] VITALS: BMI 35.4
[2019-08-31] MEDS ORDERED: Warfarin Sodium 5 MG TAB PO SCH (17:00)
[2019-08-31] MEDS ORDERED: Diphenoxylate HCl/Atropine Tablet PO PRN (17:42)
[2019-08-31] MEDS ORDERED: Ventolin HFA Inhaler 60 PUFF INHALER INH PRN (17:42)
[2019-08-31] MEDS ORDERED: IBUPROFEN PO PRN (19:00)
[2019-08-31] MEDS ORDERED: HYDROCODONE PO PRN (19:00)
[2019-08-31] MEDS: Clindamycin/D5W 300 MG/50 ML BAG IVPB SCH (20:01)
[2019-08-31 20:04] LABS: INR-International Normal Ratio 2.2; Prothrombin Time 24.1 SEC (12.0-14.7)
[2019-08-31] MEDS: Furosemide 20 MG TAB PO SCH (20:59)
[2019-08-31] MEDS: Vancomycin HCl 500 MG in Sodium Chloride 0.9% 100 ML IVPB SCH (21:00)
[2019-09-01] MEDS: Clindamycin/D5W 300 MG/50 ML BAG IVPB SCH ×4 (00:07→17:30)
[2019-09-01 05:30] LABS: #Basophils 0.1 thou/uL (0.0-0.2); #Eosinphils 0.3 thou/uL (0.0-0.7); #Monocytes 0.7 thou/uL (0.11-0.59); #Neutrophils 6.2 thou/uL (1.40-6.50); %Basophils 0.7 % (0.0-1.0); %Eosinophils 4.1 % (0.0-10.0); %Lymphocytes 12.4 % (21.0-51.0); %Monocytes 8.5 % (0.0-10.0); %Neutrophils 74.3 % (42.0-75.0); Hemoglobin 12.4 g/dL (12.0-16.0); Mean Corpuscular HGB CONC 32.9 g/dL (32.0-36.0); Mean Corpuscular Hemoglobin 32.4 pg (27.0-31.0); Mean Corpuscular Volume 98.7 fL (78.0-98.0); Mean Platelet Volume 8.7 fL (7.4-10.4); Platelet Count 147 thou/uL (130-400); RBC Distribution Width 12.7 % (11.5-14.5); Red Blood Cell (RBC) Count 3.83 mill/uL (4.20-5.40); White Blood Cell (WBC) Count 8.3 thou/uL (4.8-10.8)
[2019-09-01 05:33] LABS: Prothrombin Time 22.3 SEC (12.0-14.7)
[2019-09-01] MEDS: Levothyroxine Sodium 100 MCG TAB PO SCH (05:40)
[2019-09-01 05:43] LABS: Anion Gap 15 mmol/L (10-20); BUN (Urea Nitrogen) 21 mg/dL (9.8-20.1); Calc. Creatinine Clearance 52 mL/min (70-130); Calcium 8.8 mg/dL (7.8-10.44); Carbon Dioxide 28 mmol/L (23-31); Chloride 100 mmol/L (98-107); Estimated GFR-MDRD 36; Glucose 78 mg/dL (83-110); Potassium 3.5 mmol/L (3.5-5.1); Sodium 139 mmol/L (136-145)
[2019-09-01] MEDS: Loratadine 10 MG TAB PO SCH (09:16)
[2019-09-01] MEDS: Furosemide 20 MG TAB PO SCH (09:17)
[2019-09-01] MEDS: Folic Acid 1 MG TAB PO SCH (09:17)
[2019-09-01] MEDS: Allopurinol 100 MG TAB PO SCH (09:17)
[2019-09-01] MEDS: Potassium Bicarbonate/Cit Ac 25 MEQ TAB PO SCH (09:18)
[2019-09-01] MEDS: Saccharomyces boulardii 250 MG CAP PO SCH (09:18)
[2019-09-01] MEDS: Vancomycin HCl 500 MG in Sodium Chloride 0.9% 100 ML IVPB SCH ×2 (09:19→20:28)
[2019-09-01] MEDS: BIOTIN PO SCH (09:20)
[2019-09-01] MEDS: Warfarin Sodium 5 MG TAB PO SCH (17:30)
[2019-09-02] MEDS: Clindamycin/D5W 300 MG/50 ML BAG IVPB SCH ×4 (00:02→18:14)
[2019-09-02] MEDS: Levothyroxine Sodium 100 MCG TAB PO SCH (05:11)
--- NOTE | 2019-09-02 06:36 | PRG ---
DATE OF SERVICE: 09/01/2019 SUBJECTIVE: The patient is an 84-year-old white female with a history of rheumatoid arthritis, atrial fibrillation, on anticoagulation, as well as steroid immunosuppression with prednisone 5 mg daily for rheumatoid arthritis, who has developed septic bursitis of left elbow. This is initially treated in the emergency room with IV vancomycin and discharged on clindamycin. She followed up in my office with increasing erythema and tenderness in the elbows. Subsequently, she had aspiration with serous fluid obtained. Gram stain showing only few white cells and no organism and no growth for 12 hours of yesterday, who was seen today with persistent erythema and swelling, although with some decreasing color to the erythema, which appears to be fading. She has been continued, however, on vancomycin at her request until symptoms improve, and will be monitored closely over the next 1 to 2 days, and hopefully be discharged on oral antibiotics once she starts to respond. There is concern, however, because of the immunosuppression with prednisone. PHYSICAL EXAMINATION: VITAL SIGNS: This time show temperature 97, pulse 84, respirations 20, O2 sats 94% on room air, and blood pressure 113/60. LUNGS: Clear. CARDIAC: Shows regular rhythm. ABDOMEN: Soft, nontender. EXTREMITIES: Left arm shows tender septic bursa with erythema but with surrounding erythema and swelling of the left arm. This also was complicated, because this is normal where she has had mastectomy and may have problems with lymphedema and drainage. ASSESSMENT: 1. Septic bursitis and cellulitis, slowly responding to IV vancomycin with minimal response to clindamycin with negative cultures but obtained after initial dose of vancomycin. 2. Atrial fibrillation with rate control and anticoagulation with stable warfarin. 3. Rheumatoid arthritis and pseudogout of the right wrist, controlled only with prednisone, which has been discontinued this admission, where she was previously taking for several years. 4. Congestive heart failure, well compensated. 5. Cancer of the breast with possible recurrence. 6. Aortic stenosis with no symptoms or further evaluation requested. PLAN: 1. Continue IV vancomycin. Monitor left arm closely and discharge when felt to be stable but concerned because of immunosuppression with prednisone and because of the previous mastectomy and possible lymphedema of the left arm. 2. Atrial fibrillation with rate control, on anticoagulation, doing well. 3. Congestive heart failure, well compensated, and we will continue on home medications. Job ID: [id number]
[2019-09-02 08:22] LABS: INR-International Normal Ratio 1.7; Prothrombin Time 19.5 SEC (12.0-14.7)
[2019-09-02 08:27] LABS: Vancomycin, Trough 10.9 ug/mL
[2019-09-02] MEDS: Folic Acid 1 MG TAB PO SCH (10:35)
[2019-09-02] MEDS: Saccharomyces boulardii 250 MG CAP PO SCH (10:35)
[2019-09-02] MEDS: Potassium Bicarbonate/Cit Ac 25 MEQ TAB PO SCH (10:35)
[2019-09-02] MEDS: Furosemide 40 MG TAB PO SCH ×2 (10:36→14:33)
[2019-09-02] MEDS: Allopurinol 100 MG TAB PO SCH (10:36)
[2019-09-02] MEDS: Vancomycin HCl 500 MG in Sodium Chloride 0.9% 100 ML IVPB SCH ×2 (10:36→20:43)
[2019-09-02] MEDS: Loratadine 10 MG TAB PO SCH (10:36)
[2019-09-02] MEDS: BIOTIN PO SCH (10:37)
[2019-09-02] MEDS: Warfarin Sodium 5 MG TAB PO SCH (18:13)
[2019-09-03] MEDS: Clindamycin/D5W 300 MG/50 ML BAG IVPB SCH ×4 (00:26→18:07)
[2019-09-03] MEDS: Levothyroxine Sodium 100 MCG TAB PO SCH (05:11)
[2019-09-03 05:29] LABS: INR-International Normal Ratio 1.8; Prothrombin Time 20.7 SEC (12.0-14.7)
[2019-09-03] MEDS: Vancomycin HCl 500 MG in Sodium Chloride 0.9% 100 ML IVPB SCH ×2 (08:04→20:50)
[2019-09-03] MEDS: Potassium Bicarbonate/Cit Ac 25 MEQ TAB PO SCH (08:04)
[2019-09-03] MEDS: Furosemide 40 MG TAB PO SCH ×2 (08:05→12:01)
[2019-09-03] MEDS: Allopurinol 100 MG TAB PO SCH (08:05)
[2019-09-03] MEDS: Folic Acid 1 MG TAB PO SCH (08:05)
[2019-09-03] MEDS: BIOTIN PO SCH (08:06)
[2019-09-03] MEDS: Saccharomyces boulardii 250 MG CAP PO SCH (08:06)
[2019-09-03] MEDS: Loratadine 10 MG TAB PO SCH (08:06)
[2019-09-03] MEDS ORDERED: Warfarin Sodium 2.5 MG TAB PO SCH (15:45)
--- NOTE | 2019-09-03 16:04 | PRG ---
DATE OF SERVICE: 09/03/2019 SUBJECTIVE: Ms. Stanton is resting in bed. She has tolerated her vancomycin. Denies any questions or concerns. No fever or chills. Left elbow cellulitis seems to be improving. OBJECTIVE: VITAL SIGNS: She is afebrile. Heart rate 99, respirations 20, oxygen saturation 97% on room air, blood pressure 120/64. CARDIOVASCULAR: S1 and S2 plus. RESPIRATORY: Normal vesicular breath sounds. ABDOMEN: Soft and nontender. Bowel sounds heard in all quadrants. EXTREMITIES: Without cyanosis or clubbing. Left elbow cellulitis and bursitis with improving erythema based upon the marked margins. IMPRESSION: 1. Left elbow olecranon bursitis. 2. Rheumatoid arthritis. 3. Atrial fibrillation. 4. Cancer, breast. 5. Aortic stenosis. PLAN: 1. Continue vancomycin. 2. Heart-healthy diet. 3. Monitor heart rate and rhythm. 4. DVT prophylaxis with PlexiPulses. 5. Decubitus precautions. 6. Stress ulcer prophylaxis. 7. Routine laboratory values. The patient is on warfarin, and her INR today is 1.8. Job ID: [id number]
[2019-09-04] MEDS: Clindamycin/D5W 300 MG/50 ML BAG IVPB SCH ×5 (00:11→23:52)
[2019-09-04] MEDS: Levothyroxine Sodium 100 MCG TAB PO SCH (05:27)
[2019-09-04 05:41] LABS: INR-International Normal Ratio 1.7; Prothrombin Time 19.9 SEC (12.0-14.7)
[2019-09-04] MEDS: Vancomycin HCl 500 MG in Sodium Chloride 0.9% 100 ML IVPB SCH ×2 (08:31→21:06)
[2019-09-04] MEDS: Loratadine 10 MG TAB PO SCH (08:33)
[2019-09-04] MEDS: Folic Acid 1 MG TAB PO SCH (08:33)
[2019-09-04] MEDS: Furosemide 40 MG TAB PO SCH ×2 (08:33→12:16)
[2019-09-04] MEDS: Saccharomyces boulardii 250 MG CAP PO SCH (08:33)
[2019-09-04] MEDS: Allopurinol 100 MG TAB PO SCH (08:33)
[2019-09-04] MEDS: BIOTIN PO SCH (08:34)
[2019-09-04] MEDS: Potassium Bicarbonate/Cit Ac 25 MEQ TAB PO SCH (08:34)
[2019-09-04] MEDS ORDERED: Warfarin Sodium 2.5 MG TAB PO SCH (15:00)
--- NOTE | 2019-09-04 15:30 | PRG ---
DATE OF SERVICE: 09/04/2019 SUBJECTIVE: Ms. Stanton is resting in bed. Denies any complaints. Tolerating her antibiotic. She continues to have some soreness over the olecranon bursa on the left. OBJECTIVE: VITAL SIGNS: She is afebrile, heart rate 99, respirations 19, oxygen saturation 94% on room air, blood pressure 143/86. CARDIOVASCULAR: S1, S2 plus. RESPIRATORY: Normal vesicular breath sounds. ABDOMEN: Soft, nontender. Bowel sounds heard in all quadrants. EXTREMITIES: Without cyanosis or clubbing. Improving olecranon bursitis and cellulitis. IMPRESSION: 1. Improving olecranon bursitis and cellulitis. 2. Rheumatoid arthritis. 3. Atrial fibrillation. 4. Aortic stenosis. PLAN: 1. Continue current medications including IV antibiotics. 2. Heart healthy diet. 3. Monitor heart rate and rhythm. 4. DVT prophylaxis. She is on warfarin. 5. Decubitus precaution. 6. Stress ulcer prophylaxis. 7. Dr. Gonzalez back tonight. 8. Labs, her INR is 1.7, and we will give her an extra 2.5 mg of warfarin today. Job ID: [id number]
[2019-09-05] MEDS: Levothyroxine Sodium 100 MCG TAB PO SCH (05:20)
[2019-09-05] MEDS: Clindamycin/D5W 300 MG/50 ML BAG IVPB SCH ×3 (05:20→17:52)
[2019-09-05] MEDS: Allopurinol 100 MG TAB PO SCH (08:41)
[2019-09-05] MEDS: Loratadine 10 MG TAB PO SCH (08:41)
[2019-09-05] MEDS: Saccharomyces boulardii 250 MG CAP PO SCH (08:41)
[2019-09-05] MEDS: BIOTIN PO SCH (08:42)
[2019-09-05] MEDS: Furosemide 40 MG TAB PO SCH ×2 (08:42→12:50)
[2019-09-05] MEDS: Folic Acid 1 MG TAB PO SCH (08:42)
[2019-09-05] MEDS: Potassium Bicarbonate/Cit Ac 25 MEQ TAB PO SCH (08:42)
[2019-09-05] MEDS ORDERED: Vancomycin HCl 500 MG VIAL ONE (10:08)
[2019-09-05] MEDS: Vancomycin HCl 500 MG in Sodium Chloride 0.9% 100 ML IVPB SCH ×2 (10:13→21:42)
[2019-09-05] MEDS: Warfarin Sodium 5 MG TAB PO SCH (17:52)
--- NOTE | 2019-09-05 19:46 | CT ---
CT LEFT SHOULDER PERFORMED WITHOUT CONTRAST ENHANCEMENT: History: Left shoulder pain. History of breast cancer. FINDINGS: There are arthritic changes of the AC joint as well as the glenohumeral joint space. There are no sig ns of fracture. Subchondral cystic changes of the posterior margin of the glenoid are noted. There ar e no lytic or blastic bony lesions. Scapular region appears normal. No soft tissue masses are visuali zed. Visualized lung is clear of any infiltrate. IMPRESSION: Arthritic changes of the shoulder. No acute process. POS: [facility]
[2019-09-05] MEDS ORDERED: Lidocaine 2% MPF 10 ML AMP (For Epidural Use) FS SCH (20:00)
[2019-09-05] MEDS ORDERED: methylPREDNISolone Acetate 40 mg/ml Vial I-ARTICULR SCH (20:00)
[2019-09-05] MEDS ORDERED: Lidocaine 1% (PF) 30 ML VIAL ONE (20:10)
[2019-09-05] MEDS ORDERED: methylPREDNISolone Acetate 40 mg/ml Vial ONE (20:10)
--- NOTE | 2019-09-05 20:27 | PRG ---
DATE OF SERVICE: 09/05/2019 SUBJECTIVE: The patient is an 84-year-old white female with a history of atrial fibrillation, cancer of the breast, and pseudogout, who has developed septic bursitis of the left elbow, in her left arm where she had lymph node resection for cancer of the breast. She was responded slowly, but surely, on IV vancomycin and clindamycin, but has had persistent pain in the left olecranon bursa, although the arm is markedly decreasedly swollen and tender. However, she now is having increased pain in her left shoulder with increased pain on movement. OBJECTIVE: MUSCULOSKELETAL: Shows tenderness to palpation of the left posterior shoulder. LUNGS: Clear. CARDIAC: Shows regular rhythm. IMAGING: CT scan shows significant arthritis, but no evidence of lytic lesion or fluid. Left elbow shows decreased, but persistent erythema and swelling of the bursa, but with no swelling or erythema or tenderness of the left arm. ASSESSMENT: 1. Increased arthritic pain of left shoulder. We will give Depo-Medrol 40 mg and lidocaine 2 mL in the left shoulder by myself in the left intra-articular, in the left posterior shoulder. 2. Atrial fibrillation with rate control and stable anticoagulation. 3. Resolving septic bursitis. We will continue vancomycin and clindamycin, but may discontinue tomorrow. 4. Pseudogout, possibly exacerbation, secondary to discontinuation of oral prednisone. We will restart on oral prednisone 5 mg daily. Job ID: [id number]
[2019-09-06] MEDS: Clindamycin/D5W 300 MG/50 ML BAG IVPB SCH ×2 (00:33→05:55)
[2019-09-06] MEDS: Levothyroxine Sodium 100 MCG TAB PO SCH (05:55)
[2019-09-06 06:34] LABS: INR-International Normal Ratio 1.7; Prothrombin Time 19.7 SEC (12.0-14.7)
[2019-09-06] MEDS ORDERED: predniSONE 5 MG TAB PO SCH (08:00)
[2019-09-06] MEDS: Allopurinol 100 MG TAB PO SCH (09:23)
[2019-09-06] MEDS: Furosemide 40 MG TAB PO SCH ×2 (09:23→13:09)
[2019-09-06] MEDS: Loratadine 10 MG TAB PO SCH (09:23)
[2019-09-06] MEDS: Potassium Bicarbonate/Cit Ac 25 MEQ TAB PO SCH (09:24)
[2019-09-06] MEDS: Saccharomyces boulardii 250 MG CAP PO SCH (09:24)
[2019-09-06] MEDS: Folic Acid 1 MG TAB PO SCH (09:24)
[2019-09-06] MEDS: Vancomycin HCl 500 MG in Sodium Chloride 0.9% 100 ML IVPB SCH (09:33)
[2019-09-06] MEDS: BIOTIN PO SCH (10:11)
[2019-09-06] MEDS: Clindamycin 150 MG CAP PO SCH ×2 (10:19→16:46)
[2019-09-06] MEDS: Warfarin Sodium 5 MG TAB PO SCH (16:45)
[2019-09-06 18:16] VITALS: BP 146/74; TEMP 97.6
--- NOTE | 2019-09-07 04:52 | DIS ---
DATE OF ADMISSION: 08/31/2019 DATE OF DISCHARGE: 09/06/2019 FINAL DIAGNOSES: 1. Septic bursitis of left olecranon bursa. 2. Cellulitis secondary to lymphedema of left arm. 3. Osteoarthritis of left shoulder. 4. Chronic atrial fibrillation with rate controlled anticoagulation. 5. Pseudogout, on steroid therapy. 6. Compensated diastolic heart failure. 7. Aortic stenosis, asymptomatic. HOSPITAL COURSE: The patient is an 84-year-old white female, well known to myself with a long history of atrial fibrillation, congestive heart failure, pseudogout, distant cancer of the breast, status post left mastectomy and lymph node dissection, who presented with septic bursitis in left elbow, which has not responded to IV vancomycin in the emergency room and oral clindamycin and Keflex as an outpatient. She was therefore admitted to the hospital, started on IV vancomycin and had slow, but gradual improvement in the swelling of the left arm, felt to be due to most likely her lymphedema circulation pf antibiotics to her arm. She will require 6 days of IV antibiotics for the erythema and tenderness to her arm to resolve. She was then switched to clindamycin orally, which she has at home, continued to do well except for increased pain in the left shoulder. CT scan showed to be only significant osteoarthritis and therefore she was given 40 mg of Depo-Medrol and 2 mL of 1% lidocaine into the left shoulder to the posterior aspect under sterile conditions with significant improvement in pain and the feeling that she could go home on her prehospitalization medications of clindamycin 300 every six to finish full 10-day course as well as Keflex 500 three times daily and to continue on her prehospitalization medications of furosemide 40 twice daily, Vicoprofen 7.5/200 every 6 hours as needed, levothyroxine 100 mcg daily, potassium chloride 20 mEq twice daily, omeprazole 20 mg daily, warfarin 5 mg daily and mg daily. She will follow up with Dr. Gonzalez in 1 to 2 weeks and will continue on warfarin diet. Job ID: [id number]
== END 2019-09-06 19:27 | disposition home or self-care (01) | DRG 558 ==
LOC: NAV ACUTE 13:49
PROVIDERS: ADMIT Internal Medicine; ATTEND Internal Medicine
DX: M71.522 Other bursitis, not elsewhere classified, left elbow (principal); L03.114 Cellulitis of left upper limb; I48.20 Chronic atrial fibrillation, unspecified; I50.32 Chronic diastolic (congestive) heart failure; I13.0 Hypertensive heart and chronic kidney disease with heart failure and stage 1 through stage 4 chronic kidney disease, or unspecified chronic kidney disease; I89.0 Lymphedema, not elsewhere classified; I35.0 Nonrheumatic aortic (valve) stenosis; Z90.12 Acquired absence of left breast and nipple; Z85.3 Personal history of malignant neoplasm of breast; E78.5 Hyperlipidemia, unspecified; E03.9 Hypothyroidism, unspecified; N18.3 Chronic kidney disease, stage 3 (moderate); K21.9 Gastro-esophageal reflux disease without esophagitis; M11.231 Other chondrocalcinosis, right wrist; M06.831 Other specified rheumatoid arthritis, right wrist; Z79.01 Long term (current) use of anticoagulants; M19.012 Primary osteoarthritis, left shoulder
CPT/HCPCS: 36415; 80048; 80053; 80202; 83605; 85025; 85610; 85730; 87040; 96365; J1030; J2001; J3370; J3490; J7050; J7512

== ENCOUNTER 2019-12-05 00:50 | Emergency (ER) | payer MEDICARE, OTHER ==
[2019-12-05 02:17] LABS: Hemoglobin 13.4 g/dL (12.0-16.0); Mean Corpuscular Hemoglobin 31.9 pg (27.0-31.0); Mean Corpuscular Volume 99.7 fL (78.0-98.0); Mean Platelet Volume 9.3 fL (7.4-10.4); Platelet Count 171 thou/uL (130-400); RBC Distribution Width 12.4 % (11.5-14.5); Red Blood Cell (RBC) Count 4.18 mill/uL (4.20-5.40); White Blood Cell (WBC) Count 12.4 thou/uL (4.8-10.8)
[2019-12-05] MEDS ORDERED: Morphine 2 MG/ML SYRINGE ONE (02:18)
[2019-12-05 02:24] LABS: Band 16 % (5-11); Lymphocytes 20 % (21-51); MDiff Complete? YES; Metamyelocyte 3 % (0-0); Monocytes 5 % (0-10); Neutrophil 56 % (42-75); Platelet Morphology Comment Appears Adequate; RBC Morphology Normal
[2019-12-05 02:24] LABS: Bilirubin Negative (Negative); Blood, Urine Moderate (Negative); Clarity Cloudy (Clear); Glucose, Urine (Dipstick) Negative (Negative); Leukocyte Moderate (Negative); Nitrite Positive (Negative); Protein, Urine (Dipstick) 100 mg/dL (Neg-Trace)
[2019-12-05 02:25] LABS: ALT (SGPT) 8 U/L (8-55); AST (SGOT) 19 U/L (5-34); Albumin 3.5 g/dL (3.4-4.8); Alkaline Phosphatase 64 U/L (40-110); Anion Gap 18 mmol/L (10-20); BUN (Urea Nitrogen) 22 mg/dL (9.8-20.1); Bilirubin, Total 2.6 mg/dL (0.2-1.2); Calc. Creatinine Clearance 0 mL/min (70-130); Calcium 9.3 mg/dL (7.8-10.44); Carbon Dioxide 27 mmol/L (23-31); Chloride 100 mmol/L (98-107); Estimated GFR-MDRD 38; Globulin 3.5 g/dL (2.4-3.5); Glucose 105 mg/dL (83-110); Potassium 3.9 mmol/L (3.5-5.1); Sodium 141 mmol/L (136-145)
[2019-12-05 02:25] LABS: Bacteria/HPF 2+ HPF (None Seen); RBC/HPF 0-3 HPF (0-3); Squamous Epithelial 0-3 HPF (0-3); WBC/HPF Greater Than 50 HPF (0-3)
[2019-12-05] MEDS ORDERED: Ibuprofen 200 MG TAB ONE (02:40)
[2019-12-05 02:42] LABS: CKMB 0.9 ng/mL (0-6.6)
[2019-12-05] MEDS ORDERED: Sodium Chloride 0.9% 100 ML ONE (02:48)
[2019-12-05] MEDS ORDERED: cefTRIAXone\\ROCEPHIN 2 GM VIAL ONE (02:48)
[2019-12-05] MEDS ORDERED: Sodium Chloride 0.9% 1,000 ML ONE (02:49)
--- NOTE | 2019-12-05 08:18 | CT ---
PRELIMINARY REPORT/[facility]/EMERGENCY AFTER HOURS PROCEDURE FINAL REPORT CT PELVIS WITHOUT CONTRAST: I agree with the preliminary report given by Dr. Karen Dyer of [facility]. No acute fract ure or dislocation is seen. There are degenerative changes in the spine. Mild degenerative changes are seen in the hip joints. There is colonic diverticulosis. POS: [facility]
--- NOTE | 2019-12-05 08:46 | CT ---
PRELIMINARY REPORT/[facility]/EMERGENCY AFTER HOURS PROCEDURE EXAM: CTA Chest with Intravenous Contrast CLINICAL HISTORY: Pt's daughter reports that the pt has chronic intermittent SOB from both asthma and heart disease, an d its recurrence tonight is c/w her past occasions treated at home with her asthma MDI or avoidance o f exertion/rest. elevated D-Dimer result; GFR 38; Surgical history of mastectomy, of the left breast. TECHNIQUE: Axial CTA images of the chest with intravenous contrast. MIP reconstructed images were created and re viewed. CONTRAST: With; 60ml Isovue 370 COMPARISON: None provided. FINDINGS: PULMONARY ARTERIES There is no intraluminal filling defect suspicious for PE. AORTA No thoracic aortic aneurysm or dissection. LUNGS Calcified granuloma in the right middle lobe. Minimal chronic interstitial changes at the right posterior lung base. No parenchymal consolidation. PLEURAL SPACES No pleural effusion. No pneumothorax. HEART AND MEDIASTINUM Heart is enlarged. Coronary artery calcifications present. LYMPH NODES No lymphadenopathy. BONES No focal osseous abnormality or acute fracture. CHEST WALL AND UPPER ABDOMEN 2.2 cm soft tissue nodule in the left subcutaneous soft tissue anterior to the left third rib. Bilateral renal cysts measure up to 3.2 cm left kidney. Status post left mastectomy. Small hiatal hernia. IMPRESSION: No pulmonary embolism. No thoracic aortic aneurysm or dissection. No parenchymal consolidation. Cardiomegaly. Status post left mastectomy. 2.2 cm soft tissue nodule in the left subcutaneous soft tissues anterior to the left third rib. Correlation with prior imaging and/or tissue correlation is recommended. ELECTRONICALLY SIGNED BY: Karen Dyer MD December 05, 2019 3:29:57 AM CDT This report is intended for review by the ordering physician only, in accordance of law. If you recei ve this report in error, please call [facility] at [phone]. FINAL REPORT CT PULMONARY ANGIOGRAM WITH IV CONTRAST AND 3D POSTPROCESSING: I agree with the preliminary report given by Dr. Karen Dyer of [facility]. The soft tissue nodule in the left subcutaneous soft tissues of the left chest anterior to the left t hird rib should be evaluated with ultrasound and, if suspicious, biopsied. CODE T
[2019-12-05] MEDS ORDERED: Iopamidol 370 76% 100 ML VIAL ONE (09:00)
[2019-12-05 17:35] LABS: SARS-CoV-2 MS2 Positive; SARS-CoV-2 N Gene Negative; SARS-CoV-2 S Gene Negative; SARS-CoV-2 orf1ab Negative
== END 2019-12-05 05:40 | disposition short-term general hospital (02) ==
LOC: NAV ERS 00:50
DX: N39.0 Urinary tract infection, site not specified (principal); F05 Delirium due to known physiological condition; R06.00 Dyspnea, unspecified; R79.89 Other specified abnormal findings of blood chemistry; Z20.828 Contact with and (suspected) exposure to other viral communicable diseases; I13.0 Hypertensive heart and chronic kidney disease with heart failure and stage 1 through stage 4 chronic kidney disease, or unspecified chronic kidney disease; I50.9 Heart failure, unspecified; N18.9 Chronic kidney disease, unspecified; I48.91 Unspecified atrial fibrillation; E20.9 Hypoparathyroidism, unspecified; E78.5 Hyperlipidemia, unspecified; E78.00 Pure hypercholesterolemia, unspecified; M10.9 Gout, unspecified; M19.90 Unspecified osteoarthritis, unspecified site; J45.909 Unspecified asthma, uncomplicated; I27.20 Pulmonary hypertension, unspecified; Q61.3 Polycystic kidney, unspecified; Z79.51 Long term (current) use of inhaled steroids; Z79.52 Long term (current) use of systemic steroids; Z79.899 Other long term (current) drug therapy
CPT/HCPCS: 51701; 71275; 72192; 80053; 82553; 83605; 83880; 84484; 85025; 85379; 87077; 87086; 87186; 93005; 96361; 96365; 96375; 99285; U0003; 81003; 81015; 87635; A4353; J0696; J2270; J3490; J7050; Q9967

== ENCOUNTER 2019-12-08 15:39 | Inpatient (IN) | payer MEDICARE, OTHER ==
[2019-12-08 16:37] VITALS: BMI 34.8
[2019-12-08] MEDS ORDERED: Diclofenac 1% 100 GM GEL TP PRN (17:32)
[2019-12-08] MEDS ORDERED: Artificial Tear Sol 15 ML BOT EA EYE PRN (17:32)
[2019-12-08] MEDS ORDERED: Ventolin HFA Inhaler 60 PUFF INHALER INH PRN (17:32)
[2019-12-08] MEDS: Furosemide 40 MG TAB PO SCH (21:09)
[2019-12-08] MEDS: Cefdinir 300 MG CAP PO SCH (21:09)
[2019-12-09 05:16] LABS: #Monocytes 0.7 thou/uL (0.11-0.59); %Basophils 0.3 % (0.0-1.0); %Eosinophils 0.4 % (0.0-10.0); %Lymphocytes 9.5 % (21.0-51.0); %Monocytes 6.1 % (0.0-10.0); %Neutrophils 83.8 % (42.0-75.0); Hemoglobin 12.5 g/dL (12.0-16.0); Mean Corpuscular HGB CONC 31.3 g/dL (32.0-36.0); Mean Corpuscular Hemoglobin 31.3 pg (27.0-31.0); Mean Platelet Volume 9.9 fL (7.4-10.4); Platelet Count 170 thou/uL (130-400); RBC Distribution Width 12.6 % (11.5-14.5); White Blood Cell (WBC) Count 10.8 thou/uL (4.8-10.8)
[2019-12-09] MEDS: Levothyroxine Sodium 100 MCG TAB PO SCH (05:23)
[2019-12-09 05:26] LABS: INR-International Normal Ratio 1.6; Prothrombin Time 18.6 sec (12.0-14.7)
[2019-12-09 05:36] LABS: ALT (SGPT) 11 U/L (8-55); AST (SGOT) 19 U/L (5-34); Alkaline Phosphatase 46 U/L (40-110); Anion Gap 14 mmol/L (10-20); BUN (Urea Nitrogen) 40 mg/dL (9.8-20.1); Bilirubin, Total 0.4 mg/dL (0.2-1.2); Calc. Creatinine Clearance 59 mL/min (70-130); Calcium 8.9 mg/dL (7.8-10.44); Carbon Dioxide 31 mmol/L (23-31); Chloride 102 mmol/L (98-107); Estimated GFR-MDRD 43; Globulin 3.3 g/dL (2.4-3.5); Glucose 90 mg/dL (83-110); Potassium 3.8 mmol/L (3.5-5.1); Protein, Total 6.3 g/dL (6.0-8.3); Sodium 143 mmol/L (136-145)
[2019-12-09] MEDS: Cefdinir 300 MG CAP PO SCH ×2 (08:28→20:53)
[2019-12-09] MEDS: Famotidine 20 MG TAB PO SCH (08:28)
[2019-12-09] MEDS: Furosemide 40 MG TAB PO SCH ×2 (08:29→17:02)
[2019-12-09] MEDS: Loratadine 10 MG TAB PO SCH (08:30)
[2019-12-09] MEDS: predniSONE 20 MG TAB PO SCH (08:31)
[2019-12-09] MEDS: HYDROCODONE PO PRN (10:04)
[2019-12-09] MEDS: IBUPROFEN PO PRN (10:04)
[2019-12-09] MEDS: methylPREDNISolone Acetate 40 mg/ml Vial I-ARTICULR SCH ×2 (13:20→14:32)
[2019-12-09] MEDS ORDERED: Lidocaine 1% (PF) 30 ML VIAL ONE (13:45)
[2019-12-09] MEDS ORDERED: methylPREDNISolone Acetate 40 mg/ml Vial ONE (13:55)
--- NOTE | 2019-12-09 14:34 | PRG ---
DATE OF SERVICE: 12/09/2019 SUBJECTIVE: The patient is sitting up in a chair, eating breakfast, feels well, but still has some pain in her wrist, and also when she walked, became somewhat dizzy today. OBJECTIVE: VITAL SIGNS: Shows her blood pressure is 153/77, temperature is 98, pulse 103, respirations 20, O2 saturations 93% on room air. LUNGS: Clear. CARDIAC: Showed regular rhythm. ABDOMEN: Soft, nontender. SKIN/EXTREMITIES: Show swollen, tender right wrist, but with increased range of motion. LABORATORY DATA: PT/INR is 18 and 1.6. ASSESSMENT: 1. Resolving Escherichia coli urinary tract infection, on cefdinir. 2. Significant deconditioning with inability to maintain ADLs. 3. Resolving pseudogout on prednisone 30 mg daily and we will taper after symptoms resolve. 4. Atrial fibrillation with rate control, on anticoagulation, on warfarin, and we will need to monitor as has had interaction with prednisone, and therefore her dose has been decreased from 2 mg to 1 mg. 5. Aortic stenosis with refusal of evaluation. 6. Hypertension, controlled to goal. PLAN: 1. Continue PT/OT and discharge home when safe. 2. Continue prednisone 30 mg daily until pseudogout resolved and then begin to taper. 3. Continue daily PT/INRs and warfarin 1 mg daily and titrate as needed to maintain INR 2 to 3 and possibly increase to 2 mg if steroids are decreased. 4. Continue cefdinir for E. coli urinary tract infection. 5. Dr. Herrera to be on-call until Thursday night 9 p.m., December 10. Job ID: [id number]
[2019-12-09] MEDS: Warfarin Sodium 1 MG TAB PO SCH (17:02)
--- NOTE | 2019-12-09 20:23 | HP ---
HISTORY OF PRESENT ILLNESS: The patient is a very pleasant 84-year-old white female, well known to myself with a long history of atrial fibrillation with rate control and anticoagulation, significant aortic stenosis with no evaluation desired, and diastolic heart failure and pulmonary hypertension, who was doing very well living alone at home when she became acutely confused, hallucinating, and was taken to the emergency room, found to have urinary tract infection with urosepsis. At that time, she was admitted to [facility], started on IV fluids gently and IV antibiotics. She quickly improved with no further confusion, stable vital signs. No shortness of breath, chest pain, fever or chills. However, she did develop a recurrence of severe pain in her right wrist consistent with her recurrent pseudogout that she has had in the past. This was initially not treated with steroids because of concern about interaction with her warfarin, but it did not respond to significant narcotic medication and finally this was started with improvement in her symptoms. Her CHF appeared to be stable with a BNP of 583 baseline of 250, but with clear lung henderson, no effusion or pulmonary edema. Her atrial fib was not therapeutically anticoagulated and this was addressed. Her chronic kidney disease stage 3 was stable and felt that she could be transitioned to oral antibiotics when cultures return. They did return showing no growth and apparently urine culture did show E coli, which was sensitive to multiple antibiotics, and she was started on cefdinir as she had responded to Rocephin previously. She did respond to oral prednisone with great improvement in her right wrist pain, but still continued. She is allergic to Tylenol and therefore could not get Vicodin, but the Vicoprofen was not available in the hospital, so the patient brought in her own, this was fine. She was felt to be stable to be transferred to [facility], but not to be discharged home. She was still very weak and therefore is admitted here. At this time, the patient is awake and alert, still complaining of some pain in her wrist, but has no shortness of breath, fever, chills, confusion, dysuria or back pain. PAST MEDICAL HISTORY: Remarkable as above for atrial fibrillation, hypertension, aortic stenosis, cancer of the breast, pulmonary edema, hypothyroidism, chronic kidney disease stage 3, and diastolic heart failure. PAST SURGICAL HISTORY: Positive for partial colectomy, rotator cuff repair, hysterectomy, and left mastectomy. ALLERGIES: SHE IS ALLERGIC TO TYLENOL, PENICILLIN, SIMVASTATIN, TRAMADOL, AND SULFA DRUGS. MEDICATIONS: At this time included, 1. Warfarin 2 mg daily. 2. Prednisone 30 mg daily. 3. KCl 40 mEq twice daily. 4. Metoprolol 100 mg p.r.n., pulse greater than 100. 5. Levothyroxine 100 mcg daily. 6. Furosemide 40 twice daily. 7. Famotidine 20 daily. 8. Diclofenac 2 g topical gel 4 times daily to the right wrist. 9. Cefdinir 300 twice daily. REVIEW OF SYSTEMS: HEENT: She denies any headaches, dizziness, change in vision/hearing, hoarseness or dysphagia. PULMONARY: She denies cough, sputum production, pneumonia, asthma or tuberculosis. CARDIOVASCULAR: She denies chest pain, orthopnea, paroxysmal nocturnal dyspnea or edema. GASTROINTESTINAL: She denies nausea, vomiting, diarrhea, constipation or abdominal pain. GENITOURINARY: Denies dysuria, hematuria or nocturia. MUSCULOSKELETAL: She has significant severe pain in right wrist, improved with oral prednisone, persistent. NEUROLOGIC: Denies localized, numbness or weakness in arms or extremities. PHYSICAL EXAMINATION: GENERAL: The patient is an elderly obese white female, in no acute distress, oriented x3, and cooperative. VITAL SIGNS: Temperature 98.4, pulse 95, respirations 20, O2 sats 96% on room air, and blood pressure 133/76. HEENT: Pupils are equal, round, and reactive to light and accommodation. Sclerae anicteric. Conjunctivae pale. Oral mucous membranes well hydrated. NECK: Supple. CHEST: Left mastectomy. LUNGS: Clear to auscultation and percussion. CARDIAC: rhythm. ABDOMEN: Soft and nontender. SKIN/EXTREMITIES: No edema, clubbing or cyanosis. Right wrist is swollen, tender, but not red or hot. NEUROLOGIC: No focal findings. LABORATORY DATA: White count 10,800, hematocrit 40, and hemoglobin 12. Sodium 143, potassium 3.6, chloride 102, bicarb 31, BUN 35, creatinine 1.22, glucose 87, and calcium 8.6. Folate 12.1. B12 289. Procalcitonin 0.25. ASSESSMENT: The patient is 84-year-old white female with a history of atrial fibrillation with rate control and anticoagulation as well as recent diagnosis of urinary tract infection secondary to Escherichia coli, which has responded to IV Rocephin, is now on cefdinir 300 twice daily, but she is admitted to [facility] because of severe weakness and inability to maintain ADLs. She has developed a complication of recurrence of her pseudogout, which is being treated with prednisone with improvement, but needs to monitor PT/INR as this has become exacerbated with prednisone treatment in the past. She will be maintained on her other medications plus cefdinir, started on PT/OT, and will be discharged home as soon as she is stable while monitoring PT/INR and hopefully weaning off steroids. Job ID: [id number]
[2019-12-10] MEDS: Levothyroxine Sodium 100 MCG TAB PO SCH (05:20)
[2019-12-10 05:37] LABS: INR-International Normal Ratio 1.7; Prothrombin Time 19.6 sec (12.0-14.7)
[2019-12-10] MEDS: Cefdinir 300 MG CAP PO SCH ×2 (08:21→20:37)
[2019-12-10] MEDS: predniSONE 20 MG TAB PO SCH (08:22)
[2019-12-10] MEDS: Famotidine 20 MG TAB PO SCH (08:23)
[2019-12-10] MEDS: Loratadine 10 MG TAB PO SCH (08:23)
[2019-12-10] MEDS: Furosemide 40 MG TAB PO SCH ×2 (08:23→16:17)
--- NOTE | 2019-12-10 16:08 | PRG ---
DATE OF SERVICE: 12/10/2019 SUBJECTIVE: Ms. Stanton is resting in bed. She denies any concerns, but would like her evening dose of Lasix moved up so that she does not wake up at night going to the restroom. She is happy with her progress. Discussed with nursing. No family at bedside. OBJECTIVE: VITAL SIGNS: She is afebrile. Heart rate 98, respirations 20, oxygen saturation 94% on room air, and blood pressure 152/87. CARDIOVASCULAR SYSTEM: S1 and S2 plus. RESPIRATORY SYSTEM: Normal vesicular breath sounds heard in all lung henderson. ABDOMEN: Soft and nontender. Bowel sounds heard in all quadrants. EXTREMITIES: Without cyanosis or clubbing. CENTRAL NERVOUS SYSTEM: Generalized weakness. LABORATORY VALUES: Sodium 143, potassium 3.8, and BUN and hematocrit of 40 and 1.2. White count is 10.8, H and H are 12.5 and 40, this is from yesterday morning. IMPRESSION: 1. Resolving Escherichia coli urinary tract infection. 2. Deconditioning. 3. Pseudogout. 4. Atrial fibrillation. 5. Aortic stenosis. 6. Hypertension. 7. Hypothyroidism. 8. Dyslipidemia. She is allergic to statin. 9. Atrial fibrillation. PLAN: 1. Continue current medications. 2. Heart healthy diet. 3. Monitor for continued resolution of UTI. 4. Monitor heart rate and rhythm. 5. Physical therapy. 6. DVT prophylaxis - she is on warfarin. 7. Decubitus precautions. 8. Stress ulcer prophylaxis. 9. PT/OT eval and treat. 10. Maintain INR between 2 and 3. Job ID: [id number]
[2019-12-10] MEDS: Warfarin Sodium 1 MG TAB PO SCH (16:17)
[2019-12-11 05:29] LABS: INR-International Normal Ratio 1.5; Prothrombin Time 17.8 sec (12.0-14.7)
[2019-12-11] MEDS: Levothyroxine Sodium 100 MCG TAB PO SCH (05:46)
[2019-12-11] MEDS: Cefdinir 300 MG CAP PO SCH ×2 (08:07→20:39)
[2019-12-11] MEDS: predniSONE 20 MG TAB PO SCH (08:07)
[2019-12-11] MEDS: Famotidine 20 MG TAB PO SCH (08:08)
[2019-12-11] MEDS: Loratadine 10 MG TAB PO SCH (08:08)
[2019-12-11] MEDS: Furosemide 40 MG TAB PO SCH ×2 (08:08→16:23)
[2019-12-11] MEDS ORDERED: Warfarin Sodium 2.5 MG TAB PO SCH ×2 (10:45→17:00)
--- NOTE | 2019-12-11 13:10 | PRG ---
DATE OF SERVICE: 12/11/2019 SUBJECTIVE: Ms. Stanton is doing well. Denies any complaints. Just finished her lunch. OBJECTIVE: VITAL SIGNS: She is afebrile, heart rate 91, respirations 20, oxygen saturation 95% on room air, blood pressure 162/89, recheck was not done. CARDIOVASCULAR: S1 and S2 plus. RESPIRATORY: Normal vesicular breath sounds. ABDOMEN: Soft and nontender. Bowel sounds heard in all quadrants. EXTREMITIES: Without cyanosis or clubbing. CENTRAL NERVOUS SYSTEM: Improving deconditioning. LABORATORY DATA: Her INR is 1.5. IMPRESSION: 1. Resolving Escherichia coli urinary tract infection. 2. Atrial fibrillation. 3. Aortic stenosis. 4. Hypertension. 5. Hypothyroidism. 6. Dyslipidemia. 7. Pseudogout. PLAN: 1. Continue current medications, but give her an extra dose of warfarin 2.5 mg today. 2. Heart-healthy diet. 3. Continue therapy. 4. DVT prophylaxis - she is on warfarin, and dose is being adjusted. 5. Decubitus precautions. 6. Stress ulcer prophylaxis. Job ID: [id number]
[2019-12-11] MEDS: Warfarin Sodium 1 MG TAB PO SCH (16:23)
[2019-12-12] MEDS: Levothyroxine Sodium 100 MCG TAB PO SCH (05:09)
[2019-12-12 05:44] LABS: INR-International Normal Ratio 1.4; Prothrombin Time 16.9 sec (12.0-14.7)
[2019-12-12] MEDS: predniSONE 20 MG TAB PO SCH (09:29)
[2019-12-12] MEDS: Furosemide 40 MG TAB PO SCH ×2 (09:36→16:18)
[2019-12-12] MEDS: Cefdinir 300 MG CAP PO SCH ×2 (09:37→20:31)
[2019-12-12] MEDS: Loratadine 10 MG TAB PO SCH (09:37)
[2019-12-12] MEDS: Famotidine 20 MG TAB PO SCH (09:37)
[2019-12-12] MEDS: IBUPROFEN PO PRN (09:38)
[2019-12-12] MEDS: HYDROCODONE PO PRN (09:38)
[2019-12-12] MEDS: Warfarin Sodium 1 MG TAB PO SCH (16:19)
[2019-12-12] MEDS ORDERED: Warfarin Sodium 2.5 MG TAB PO SCH (17:15)
--- NOTE | 2019-12-12 17:37 | PRG ---
DATE OF SERVICE: CARDIOVASCULAR: S1 and S2 plus. RESPIRATORY: Normal vesicular breath sounds. ABDOMEN: Soft, nontender. Bowel sounds heard in all quadrants. EXTREMITIES: Without cyanosis or clubbing. IMPRESSION: 1. Resolving urinary tract infection. 2. Atrial fibrillation. 3. Aortic stenosis. 4. Subtherapeutic INR. 5. Improving deconditioning. 6. Hypertension. 7. Hypothyroidism. 8. Dyslipidemia. PLAN: 1. Continue current medications, would give her an extra warfarin 2.5 mg today. 2. Heart healthy diet. 3. Discharge planning. 4. DVT prophylaxis. 5. Decubitus precautions. 6. Dr. Lisa butler [facility]. Job ID: [id number]
[2019-12-13] MEDS: Levothyroxine Sodium 100 MCG TAB PO SCH (05:45)
[2019-12-13 05:58] LABS: INR-International Normal Ratio 1.3; Prothrombin Time 15.9 sec (12.0-14.7)
[2019-12-13 08:08] VITALS: BP 165/94; TEMP 96.1
[2019-12-13] MEDS ORDERED: predniSONE 20 MG TAB PO SCH (08:30)
[2019-12-13] MEDS: predniSONE 20 MG TAB PO SCH (09:27)
[2019-12-13] MEDS: Furosemide 40 MG TAB PO SCH ×2 (09:28→17:12)
[2019-12-13] MEDS: Cefdinir 300 MG CAP PO SCH (09:28)
[2019-12-13] MEDS: Loratadine 10 MG TAB PO SCH (09:29)
[2019-12-13] MEDS: Famotidine 20 MG TAB PO SCH (09:29)
[2019-12-13] MEDS ORDERED: IBUPROFEN PO PRN (10:30)
[2019-12-13] MEDS ORDERED: HYDROCODONE PO PRN (10:30)
[2019-12-13] MEDS ORDERED: Warfarin Sodium 2 MG TAB PO SCH ×2 (17:00→18:15)
[2019-12-14] MEDS ORDERED: predniSONE 20 MG TAB PO SCH (08:00)
[2019-12-14] MEDS ORDERED: Warfarin Sodium 2 MG TAB PO SCH (17:00)
== END 2019-12-13 18:39 | disposition home or self-care (01) | DRG 690 ==
LOC: NAV ACUTE 15:39
PROVIDERS: ADMIT Internal Medicine; ATTEND Internal Medicine
DX: N39.0 Urinary tract infection, site not specified (principal); I13.0 Hypertensive heart and chronic kidney disease with heart failure and stage 1 through stage 4 chronic kidney disease, or unspecified chronic kidney disease; I50.32 Chronic diastolic (congestive) heart failure; B96.20 Unspecified Escherichia coli [E. coli] as the cause of diseases classified elsewhere; N18.3 Chronic kidney disease, stage 3 (moderate); I48.91 Unspecified atrial fibrillation; M11.20 Other chondrocalcinosis, unspecified site; E78.5 Hyperlipidemia, unspecified; I35.0 Nonrheumatic aortic (valve) stenosis; I27.20 Pulmonary hypertension, unspecified; E03.9 Hypothyroidism, unspecified; Z79.01 Long term (current) use of anticoagulants; Z85.3 Personal history of malignant neoplasm of breast; Z90.12 Acquired absence of left breast and nipple; Z90.49 Acquired absence of other specified parts of digestive tract; Z90.710 Acquired absence of both cervix and uterus; Z88.6 Allergy status to analgesic agent; Z88.1 Allergy status to other antibiotic agents; Z88.0 Allergy status to penicillin; Z88.2 Allergy status to sulfonamides; Z88.8 Allergy status to other drugs, medicaments and biological substances
CPT/HCPCS: 36415; 80053; 85025; 85610; J2001; J2960; J7512

== ENCOUNTER 2020-02-13 18:50 | Emergency (ER) | payer MEDICARE, OTHER ==
[2020-02-13] MEDS ORDERED: Bacitracin 1 PK ONE ×2 (19:13→19:14)
--- NOTE | 2020-02-13 19:33 | RAD ---
Exam: Chest one view HISTORY:Tachycardia Comparison: 12/23/2019 FINDINGS: Cardiac silhouette:Cardiomegaly. Aorta: Atherosclerosis Pulmonary vessels: Normal Costophrenic angles: Clear LUNGS: Chronic lung parenchymal changes. Stable calcified granulomas. Pneumothorax: None Osseous abnormalities: None IMPRESSION: 1. Atherosclerosis 2. Cardiomegaly without congestive heart failure.
[2020-02-13 19:36] LABS: #Basophils 0.1 thou/uL (0.0-0.2); #Eosinphils 0.5 thou/uL (0.0-0.7); #Lymphocytes 1.7 thou/uL (1.20-3.40); #Monocytes 0.8 thou/uL (0.11-0.59); #Neutrophils 5.1 thou/uL (1.40-6.50); %Basophils 1.2 % (0.0-1.0); %Eosinophils 6.6 % (0.0-10.0); %Lymphocytes 20.6 % (21.0-51.0); %Monocytes 9.7 % (0.0-10.0); %Neutrophils 61.9 % (42.0-75.0); Hemoglobin 13.1 g/dL (12.0-16.0); Mean Corpuscular HGB CONC 31.4 g/dL (32.0-36.0); Mean Corpuscular Hemoglobin 31.5 pg (27.0-31.0); Mean Platelet Volume 9.6 fL (7.4-10.4); Platelet Count 177 thou/uL (130-400); RBC Distribution Width 14.8 % (11.5-14.5); Red Blood Cell (RBC) Count 4.17 mill/uL (4.20-5.40); White Blood Cell (WBC) Count 8.2 thou/uL (4.8-10.8)
[2020-02-13 19:55] LABS: ALT (SGPT) 8 U/L (8-55); AST (SGOT) 17 U/L (5-34); Albumin 3.4 g/dL (3.4-4.8); Alkaline Phosphatase 64 U/L (40-110); Anion Gap 17 mmol/L (10-20); BUN (Urea Nitrogen) 19 mg/dL (9.8-20.1); Bilirubin, Total 1.3 mg/dL (0.2-1.2); Calc. Creatinine Clearance 0 mL/min (70-130); Calcium 9.5 mg/dL (7.8-10.44); Carbon Dioxide 28 mmol/L (23-31); Chloride 95 mmol/L (98-107); Estimated GFR-MDRD 36; Globulin 3.4 g/dL (2.4-3.5); Glucose 113 mg/dL (83-110); Potassium 3.2 mmol/L (3.5-5.1); Protein, Total 6.8 g/dL (6.0-8.3); Sodium 137 mmol/L (136-145)
[2020-02-13] MEDS ORDERED: Diltiazem 125 MG/25 ML ONE (20:02)
[2020-02-13] MEDS ORDERED: Sodium Chloride 0.9% 100 ML ONE (20:02)
[2020-02-13] MEDS ORDERED: Sodium Chloride 0.9% 0 ML ONE (20:02)
[2020-02-13 20:12] LABS: CKMB 0.6 ng/mL (0-6.6)
== END 2020-02-13 21:35 | disposition short-term general hospital (02) ==
LOC: NAV ERS 18:50
DX: S81.812A Laceration without foreign body, left lower leg, initial encounter (principal); I48.91 Unspecified atrial fibrillation; I13.0 Hypertensive heart and chronic kidney disease with heart failure and stage 1 through stage 4 chronic kidney disease, or unspecified chronic kidney disease; I50.9 Heart failure, unspecified; N18.9 Chronic kidney disease, unspecified; E78.5 Hyperlipidemia, unspecified; E78.00 Pure hypercholesterolemia, unspecified; E20.9 Hypoparathyroidism, unspecified; M10.9 Gout, unspecified; J45.909 Unspecified asthma, uncomplicated; M19.90 Unspecified osteoarthritis, unspecified site; Z79.01 Long term (current) use of anticoagulants; Z79.51 Long term (current) use of inhaled steroids; Z79.899 Other long term (current) drug therapy; W01.10XA Fall on same level from slipping, tripping and stumbling with subsequent striking against unspecified object, initial encounter
CPT/HCPCS: 71045; 80053; 82553; 83880; 84484; 85025; 93005; 96365; 96376; 99292

== ENCOUNTER 2020-02-21 10:56 | Outpatient (CLI) | payer MEDICARE, OTHER ==
--- NOTE | 2020-02-21 11:16 | RAD ---
EXAM: Chest 2 views: HISTORY: CHF COMPARISON: 10/12/2018 FINDINGS: There is an enlarged but stable cardiomediastinal silhouette. Increased interstitial lung markings a re present. A calcified granuloma projects over the midportion of the right thorax. No pleural effusion or infiltrate are seen. The bones are unremarkable. IMPRESSION: Stable chronic interstitial lung disease
== END 2020-02-21 10:57 | disposition home or self-care (01) ==
LOC: NAV RAD 10:56
PROVIDERS: ATTEND Internal Medicine
DX: I50.9 Heart failure, unspecified (principal); J98.4 Other disorders of lung
CPT/HCPCS: 71046

== ENCOUNTER 2020-03-27 17:05 | Outpatient (CLI) | payer MEDICARE, OTHER ==
--- NOTE | 2020-03-27 17:43 | CT ---
CT Brain WO Con: 03/27/2020 5:10 PM CLINICAL HISTORY: History of disequilibrium. IMAGING TECHNIQUE: Multiple CT images were obtained of the brain without IV contrast. COMPARISON: None. FINDINGS: BRAIN: Evidence of acute infarct: None. Evidence of chronic ischemic change:There is mild chronic small vessel white matter ischemic change. Evidence of intracranial hemorrhage: None. Evidence of midline shift: Third ventricle and septum pellucidum are midline. Ventricles: Normal. No hydrocephalus. SKULL: Intact. VISUALIZED PARANASAL SINUSES: Clear. MASTOID AIR CELLS: Clear. EXTRACRANIAL SOFT TISSUES: Normal. IMPRESSION: No acute intracranial abnormality. Mild chronic small vessel white matter ischemic change.
== END 2020-03-27 17:06 | disposition home or self-care (01) ==
LOC: NAV CT 17:05
PROVIDERS: ATTEND Internal Medicine
DX: R42 Dizziness and giddiness (principal)
CPT/HCPCS: 70450

== ENCOUNTER 2020-06-29 08:36 | Outpatient (CLI) | payer MEDICARE, OTHER ==
[2020-06-29 08:52] LABS: INR-International Normal Ratio 1.5; Prothrombin Time 18.7 sec (12.0-14.7)
[2020-06-29 10:10] LABS: Follow-up Coag Comp? YES; Follow-up Result - Coag REPORT FAXED
== END 2020-06-29 08:37 | disposition home or self-care (01) ==
LOC: NAV LABSP 08:36
PROVIDERS: ATTEND Internal Medicine
DX: Z51.81 Encounter for therapeutic drug level monitoring (principal); I48.91 Unspecified atrial fibrillation; I50.9 Heart failure, unspecified; Z79.01 Long term (current) use of anticoagulants
CPT/HCPCS: 36415; 85610

== ENCOUNTER 2021-01-04 08:48 | Outpatient (CLI) | payer MEDICARE, OTHER ==
[2021-01-04 09:08] LABS: INR-International Normal Ratio 1.3; Prothrombin Time 16.6 sec (12.0-14.7)
[2021-01-04 09:12] LABS: Anion Gap 14 mmol/L (10-20); BUN (Urea Nitrogen) 27 mg/dL (9.8-20.1); Calc. Creatinine Clearance 0 mL/min (70-130); Calcium 8.7 mg/dL (7.8-10.44); Carbon Dioxide 34 mmol/L (23-31); Chloride 96 mmol/L (98-107); Glucose 71 mg/dL (83-110); Potassium 3.6 mmol/L (3.5-5.1); Sodium 140 mmol/L (136-145)
[2021-01-04 11:26] LABS: Follow-up Chemistry Comp? YES; Follow-up Coag Comp? YES; Follow-up Result - Chemistry REPORT FAXED; Follow-up Result - Coag REPORT FAXED
== END 2021-01-04 08:49 | disposition home or self-care (01) ==
LOC: NAV LABSP 08:48
PROVIDERS: ATTEND Internal Medicine
DX: I50.9 Heart failure, unspecified (principal); N18.4 Chronic kidney disease, stage 4 (severe); I48.91 Unspecified atrial fibrillation
CPT/HCPCS: 80048; 83880; 85610